=== PATIENT | male | born 1935 | race Caucasian/White ===

== ENCOUNTER → 2016-05-20 | Outpatient (CLI) | payer OTHER ==
--- NOTE | 2016-05-20 15:02 | DX ---
PA and Lateral Chest May 20, 2016 Clinical Indications: History of shortness of breath in a 80-year-old male; preprocedural evaluation . Comparison: July 26, 2015. Findings: No focal pulmonary consolidation is identified. There is hyperexpansion seen, with flatte sena of the hemidiaphragms noted. The heart is mildly enlarged. A bipolar cardiac pacer is in stabl e position. Mild elevation of the right hemidiaphragm is stable. Postoperative changes of anterior cervical fusion are noted. Pleural surfaces and bony thorax are negative for acute abnormality. Impressions 1. Hyperexpansion suggests possible airways disease. 2. Mild cardiac enlargement, without pulmonary edema.
== END ==
LOC: FIMAGING 11:41
PROVIDERS: ATTEND Internal Medicine
DX: R06.02 Shortness of breath (principal)

== ENCOUNTER → 2016-07-31 | Outpatient (CLI) | payer OTHER | LOC: CIMAGING 14:14 | PROVIDERS: ATTEND Family Medicine | DX: R93.6 Abnormal findings on diagnostic imaging of limbs (principal); M25.512 Pain in left shoulder | CPT/HCPCS: 73030-PO ==

== ENCOUNTER → 2016-08-19 | Outpatient (CLI) | payer OTHER | LOC: BRMIMAGING 09:32 | PROVIDERS: ATTEND Internal Medicine Hematology & Oncology | DX: Z13.820 Encounter for screening for osteoporosis (principal); M85.80 Other specified disorders of bone density and structure, unspecified site; Z85.46 Personal history of malignant neoplasm of prostate; Z87.81 Personal history of (healed) traumatic fracture; M54.5 Low back pain; E11.9 Type 2 diabetes mellitus without complications; N28.9 Disorder of kidney and ureter, unspecified ==

== ENCOUNTER → 2016-12-18 | Outpatient (CLI) | payer OTHER ==
[~2016-12-18] MED LIST: LIDO/EPI 1% **for epidural** 30 ML SDV ONE
== END ==
LOC: CIMAGING 11:38
PROVIDERS: ATTEND Internal Medicine
DX: I51.7 Cardiomegaly (principal)
CPT/HCPCS: 71020-PO

== ENCOUNTER 2017-03-03 14:32 | Inpatient (IN) | payer OTHER ==
[2017-03-03] MEDS ORDERED: methylPREDNISolone SOD SUCC 125 MG/2 ML VIAL IVP ONE (15:08)
[2017-03-03] MEDS ORDERED: IPRATROPIUM/ALBUTEROL 3 ML DEYVIAL IH ONE (15:08)
--- NOTE | 2017-03-03 15:08 | EDPHY ---
H & P Time Seen by Provider: 03/03/17 15:05 HPI/ROS: CHIEF COMPLAINT: Cough HISTORY OF PRESENT ILLNESS: Patient is a 81-year-old male with a history of COPD, diabetes and hypertension who presents emergency department with worsening cough. His symptoms started on Friday. His cough is nonproductive. He has mild shortness of breath. He has not measured temperature but he does have chills. He has had body aches because of the cough. He denies any leg pain or swelling. He has had no chest pain, nausea or vomiting. REVIEW OF SYSTEMS: My complete review of systems is negative except as mentioned in the HPI. Past Medical/Surgical History: Includes COPD, diabetes, hypertension, prostate cancer Past surgical history: Includes pacemaker placement, orthopedic surgery, back surgery Social history: The patient does not smoke Smoking Status: Former smoker Physical Exam: GENERAL: Well-appearing, in no acute distress, alert. HEENT: Eyes normal to inspection, normal pharynx, no signs of dehydration. NECK: No thyromegaly, no lymphadenopathy, supple. RESPIRATORY: diffuse wheeze with poor aeration. No rales or rhonchi. CVS: Regular rate and rhythm, no rubs, murmurs, or gallops. ABDOMEN: Soft, nontender, nondistended, no organomegaly. BACK: Normal to inspection, no CVA tenderness. SKIN: Normal color, no rash, warm, dry. No pallor. EXTREMITIES: No pedal edema, no calf tenderness, no Homans sign or cords, no joint swelling. NEURO/PSYCH: Alert and oriented x3, normal mood and affect, normal motor sensory exam. No obvious cranial nerve deficit. Constitutional: Initial Vital Signs Temperature (C) 37.4 C 03/03/17 14:41 Heart Rate 64 03/03/17 14:41 Respiratory Rate 20 03/03/17 14:41 Blood Pressure 119/68 03/03/17 14:41 O2 Sat (%) 96 03/03/17 14:41 O2 Delivery Mode Room Air Allergies/Adverse Reactions: No Known Allergies Allergy (Verified 03/03/17 14:39) Home Medications: Medication Instructions Recorded Albuterol [Proventil Inhaler HFA 2 puffs IH Q4 PRN 04/01/15 (*)] Amoxicillin/Clavulanate Pot 875 mg PO Q12 12/19/15 [Augmentin 875 MG TAB (*)] Aspirin [Aspirin 81mg (*)] 81 mg PO DAILY 04/01/15 Clobetasol 0.05% [Temovate Topical 1 alan TP DAILY PRN 04/01/15 Solution] Denosumab [Prolia] 60 mg SQ .[id number] 04/01/15 Docusate Sodium [Colace 100 MG (*)] 100 mg PO BID PRN 04/01/15 Ferrous Sulfate [Ferrous Sulf 325 325 mg PO DAILY 04/01/15 MG (*)] Furosemide [Lasix 20 MG (*)] 20 mg PO DAILY 04/01/15 Gabapentin [Neurontin 100 MG (*)] 100 mg PO TID 04/01/15 Herbals/Supplements -Info Only 1 ea PO DAILY 04/01/15 Ipratropium/Albuterol [Duoneb (*)] 3 ml IH QID PRN 04/01/15 Lidocaine 5% [Lidoderm 5% Patch 1 ea TD DAILY 04/01/15 (*)] Metoprolol Tartrate [Lopressor 25 25 mg PO BID 04/01/15 mg (*)] Multivitamins [Multivitamin (*)] 1 each PO DAILY 04/01/15 Polyethylene Glycol 3350 [Miralax 17 gm PO DAILY 04/01/15 17 gm (*)] Simvastatin [Zocor] 40 mg PO DAILY 04/01/15 Tamsulosin HCl [Flomax 0.4 MG (*)] 0.4 mg PO DAILY 04/01/15 Tiotropium Inhaler [Spiriva 18 mcg IH DAILY 04/01/15 Handihaler] glipiZIDE [Glipizide ER] 10 mg PO DAILY 04/01/15 Insulin Glargine [Lantus 100 30 units SC HS 5 Days ml 04/02/15 UNITS/ML (*)] levOFLOXACIN [levAQUIN] 500 mg PO DAILY #5 tab 04/02/15 predniSONE 40 mg PO DAILY 5 Days tablet 04/02/15 Medical Decision Making - Diagnostics Imaging Results: Imaging Impressions Chest X-Ray 03/03/17 14:55 Impression: COPD. Nothing acute identified. ED Course/Re-evaluation: In the emergency department I discussed possible etiologies with the patient. I answered all her questions. IV was placed. Laboratory studies, EKG and chest x-ray were obtained. Because the patient has significant wheezing and history of COPD patient was given a DuoNeb and Solu-Medrol 125 mg IV. The patient's stat had difficulty obtaining an IV. They were able to obtain blood. Because of this I ordered prednisone 60 mg in lieu of Solu-Medrol 125 mg. Patient's CBC was notable for normal white count. He is mildly anemic. His chemistry panel showed sodium 139, elevated potassium of 5.5, chloride 95, CO2 29, BUN 24, creatinine elevated 2.2. I compared this to his previous creatinine at 2.0. His glucose was 84. His lactic acid was elevated at 2.7. EKG: Ventricular paced rhythm at 93. On recheck the patient stated he felt better after the DuoNeb treatment. Chest x-ray: Please refer the dictated report. No acute infiltrate. The patient has findings consistent with COPD. I discussed the results with the patient. On recheck he still had scattered wheezing with mildly decreased breath sounds. No accessory muscle use. Patient ambulated in the emergency department off oxygen. He became hypoxic with oxygen saturation of 80%. He felt short of breath. With ambulation his heart rate also went from the 60s to greater than 100. I discussed the case with the hospitalist service. They will admit the patient. Patient is aware the plan for transfer. EMTALA was completed. Differential Diagnosis: My differential includes but is not limited to COPD exacerbation, pneumonia, bronchitis, empyema, pneumothorax, ACS, acute SC, electrolyte abnormality, sugar abnormality - Data Points Laboratory Results: Laboratory Results 03/03/17 15:45 03/03/17 15:45 03/03/17 03/03/17 03/03/17 15:45 15:45 15:45 WBC 6.37 10^3/uL 10^3/uL (3.80-9.50) RBC 3.48 10^6/uL L 10^6/uL (4.40-6.38) Hgb 11.4 g/dL L g/dL (13.7-17.5) Hct 34.1 % L % (40.0-51.0) MCV 98.0 fL fL (81.5-99.8) MCH 32.8 pg pg (27.9-34.1) MCHC 33.4 g/dL g/dL (32.4-36.7) RDW 12.8 % % (11.5-15.2) Plt Count 287 10^3/uL 10^3/uL (150-400) MPV 10.0 fL fL (8.7-11.7) Neut % (Auto) 63.1 % % (39.3-74.2) Lymph % (Auto) 19.8 % % (15.0-45.0) [place] % (Auto) 10.7 % % (4.5-13.0) Eos % (Auto) 5.0 % % (0.6-7.6) Baso % (Auto) 0.9 % % (0.3-1.7) Nucleat RBC Rel Count 0.0 % % (0.0-0.2) Absolute Neuts (auto) 4.02 10^3/uL 10^3/uL (1.70-6.50) Absolute Lymphs (auto) 1.26 10^3/uL 10^3/uL (1.00-3.00) Absolute Monos (auto) 0.68 10^3/uL 10^3/uL (0.30-0.80) Absolute Eos (auto) 0.32 10^3/uL 10^3/uL (0.03-0.40) Absolute Basos (auto) 0.06 10^3/uL 10^3/uL (0.02-0.10) Absolute Nucleated RBC 0.00 10^3/uL 10^3/uL (0-0.01) Immature Gran % 0.5 % % (0.0-1.1) Immature Gran # 0.03 10^3/uL 10^3/uL (0.00-0.10) RBC/WBC/PLT Morphology NORMAL (NORMAL) Platelet Estimate ADEQUATE (ADEQ) VBG Lactic Acid 2.7 mmol/L H mmol/L (0.7-2.1) Sodium 139 mEq/L mEq/L (134-144) Potassium 5.5 mEq/L H mEq/L (3.5-5.2) Chloride 95 mEq/L L mEq/L (97-110) Carbon Dioxide 29 mEq/l mEq/l (22-31) Anion Gap 15 mEq/L mEq/L (8-16) BUN 24 mg/dL H mg/dL (7-23) Creatinine 2.2 mg/dL H mg/dL (0.7-1.3) Estimated GFR 29 Glucose 84 mg/dL mg/dL (70-100) Calcium 9.4 mg/dL mg/dL (8.5-10.4) Troponin I 0.012 ng/mL ng/mL (0.000-0.034) NT-Pro-B Natriuret Pep 1290 pg/mL H pg/mL (0-450) Medications Given: Discontinued Medications Albuterol/Ipratropium (Duoneb) 3 ml IH EDNOW ONE Stop: 03/03/17 15:09 Last Admin: 03/03/17 16:06 Dose: 3 ml Methylprednisolone Sodium Succinate (Solu-Medrol) 125 mg IVP EDNOW ONE Stop: 03/03/17 15:09 Last Admin: 03/03/17 16:07 Dose: Not Given Prednisone (Prednisone) 60 mg PO EDNOW ONE Stop: 03/03/17 16:02 Last Admin: 03/03/17 16:06 Dose: 60 mg Departure - Departure Disposition: [facility] Inpatient Acute Clinical Impression: COPD (chronic obstructive pulmonary disease) Qualifiers: COPD type: unspecified COPD Qualified Code(s): J44.9 - Chronic obstructive pulmonary disease, unspecified Condition: Good Instructions: COPD (Chronic Obstructive Pulmonary Disease) (ED) Referrals: Samara Barfield MD [Primary Care Provider] - As per Instructions
[2017-03-03] MEDS ORDERED: predniSONE 20 MG TAB PO ONE (16:01)
[2017-03-03 16:06] LABS: % IMMATURE GRANULYOCYTES 0.5 % (0.0-1.1); ABSOLUTE IMMATURE GRANULOCYTES 0.03 10^3/uL (0.00-0.10); ATYPICAL LYMPHOCYTE FLAG 0 (0-99); FRAGMENT RBC FLAG 0 (0-99); HEMATOCRIT 34.1 % (40.0-51.0); HEMOGLOBIN 11.4 g/dL (13.7-17.5); LEFT SHIFT FLG 10 (0-99); LIPEMIA HEMOLYSIS FLAG 80 (0-99); MEAN CELL HEMOGLOBIN 32.8 pg (27.9-34.1); MEAN CELL HEMOGLOBIN CONCENTR. 33.4 g/dL (32.4-36.7); PLATELET COUNT 287 10^3/uL (150-400); RED BLOOD CELL COUNT 3.48 10^6/uL (4.40-6.38); RED CELL DISTRIBUTION WIDTH 12.8 % (11.5-15.2)
--- NOTE | 2017-03-03 16:12 | CPEKG ---
Heart Rate: 93 RR Interval: 645 P-R Interval: 184 QRSD Interval: 168 QT Interval: 416 QTC Interval: 518 P [place]: 0 QRS [place]: -67 T Wave [place]: 102 EKG Severity - ABNORMAL ECG - EKG Impression: VENTRICULAR-PACED COMPLEXES Electronically Signed By: Mary Kate Curry 03-Mar-2017 22:16:52
[2017-03-03 16:13] LABS: PLATELET CLUMPS FLAG 300 (0-99)
[2017-03-03 16:14] LABS: ADD DIFF? NO; ADD MORPH? YES; ADD SCAN? NO; CALCIUM 9.4 mg/dL (8.5-10.4); CREATININE 2.2 mg/dL (0.7-1.3); POTASSIUM 5.5 mEq/L (3.5-5.2)
[2017-03-03 16:28] LABS: TROPONIN I 0.012 ng/mL (0.000-0.034)
[2017-03-03 16:59] LABS: PLATELET ESTIMATE ADEQUATE (ADEQ)
[2017-03-03] MEDS ORDERED: NS 1,000 ML IV ONE (17:24)
[2017-03-03] MEDS ORDERED: ALBUTEROL 3 ML DEYVIAL IH ONE (20:26)
[2017-03-03] MEDS ORDERED: ALBUTEROL 3 ML DEYVIAL IH PRN (21:59)
[2017-03-03] MEDS ORDERED: ONDANSETRON DISINTEGRATING 4 MG TAB PO PRN (21:59)
[2017-03-03] MEDS ORDERED: ONDANSETRON 4 MG/2 ML VIAL IVP PRN (21:59)
[2017-03-03] MEDS ORDERED: D50W 25 GM/50 ML VIAL IVP PRN (22:33)
[2017-03-03 22:35] LABS: POTASSIUM 5.2 mEq/L (3.5-5.2)
[2017-03-03 22:49] LABS: TROPONIN I < 0.012 ng/mL (0.000-0.034)
[2017-03-03] MEDS: AZITHROMYCIN 250 MG TAB PO SCH (23:04)
[2017-03-03] MEDS: guaiFENesin 600 MG TAB.ER PO SCH (23:04)
[2017-03-03] MEDS: HEPARIN 5,000 UNIT/0.5 ML SYR SC SCH (23:04)
[2017-03-03] MEDS: INSULIN GLARGINE 100 UNITS/ML SYRINGE SC SCH (23:30)
--- NOTE | 2017-03-03 23:52 | GHP ---
[f rep st] HISTORY AND PHYSICAL DATE OF ADMISSION: 03/03/2017 CHIEF COMPLAINT: Cough and shortness of breath. HISTORY OF PRESENT ILLNESS: The patient is a 81-year-old male with history of COPD, diabetes, hypertension, chronic kidney disease, who presents to the emergency department with 2 days of worsening productive cough and shortness of breath. He states he developed a sore throat and congestion 2 days ago. He then developed a cough, which is intermittently productive. He states he gets chest pain only with coughing. Denies chest pressure at rest. He currently feels mildly short of breath. He denies fevers, but endorses chills. He also complains of myalgias. He has had no abdominal pain, nausea, vomiting, or diarrhea. No changes in his bowel or bladder habits. He notes nocturnal urinary frequency, which has been present since his prostate cancer diagnosis. In the emergency department, he was found to be hypoxemic to 88% on room air. There was no evidence of pneumonia on chest x-ray. He was given a nebulizer treatment along with 125 mg of IV Solu-Medrol. He is admitted to the hospital for further management. PAST MEDICAL HISTORY: 1. COPD. He does not require home oxygen. 2. Type 2 diabetes mellitus. 3. Chronic kidney disease with a baseline creatinine of 2. 4. Hypertension. 5. History of prostate cancer. 6. Presence of a pacemaker. 7. Coronary artery disease. 8. History of dilated cardiomyopathy. 9. Anemia of chronic disease. 10. Hyperlipidemia. MEDICATIONS: Please see [facility] for completed outpatient medication list. ALLERGIES: He has no known drug allergies. FAMILY HISTORY: Positive for diabetes. SOCIAL HISTORY: He is a former smoker. He denies alcohol. He lives independently and is able to form all of his ADLs. REVIEW OF SYSTEMS: A 10-point review of systems was performed and is negative as per HPI. PHYSICAL EXAMINATION: VITAL SIGNS: Temperature is 36.8. Blood pressure 115/ 61. Heart rate 73. Respiratory rate 16. He is 95% on 2 L oxygen by nasal cannula. GENERAL: The patient is awake, alert, oriented, in no acute distress HEENT: Head is atraumatic, normocephalic. Pupils equal, round, and reactive to light. Extraocular muscles intact. Oropharynx is clear. Mucous membranes are moist. NECK: Supple. There is no JVD. HEART: Regular rate and rhythm with a 2/6 systolic ejection murmur. LUNGS: Decreased air exchange with diffuse expiratory wheezes. ABDOMEN: Soft, nondistended, nontender with normoactive bowel sounds. EXTREMITIES: Without cyanosis, clubbing, or edema. Are warm and well perfused. NEUROLOGIC: Grossly nonfocal. LABORATORY DATA: CBC reveals a normal white count. Hemoglobin 11.4, which is stable. Initial lactate is 2.7; repeat is 2.5. Basic metabolic panel is remarkable for potassium of 5.5, repeat is 5.2. Creatinine is 2.2, which is near his baseline of 2. Blood sugar is 265. Initial troponin is negative. NT proBNP is 1290. Chest x-ray performed in the emergency department was personally reviewed and interpreted. Reveals flattening of the diaphragm with bronchial wall thickening consistent with COPD. No obvious infiltrate or consolidation is seen. EKG shows ventricular-paced complexes with a rate of 93. This EKG appears similar to previous EKGs. ASSESSMENT AND PLAN: The patient is a 81-year-old male with history of diabetes , hypertension, chronic kidney disease. He is admitted to the hospital with a chronic obstructive pulmonary disease exacerbation. 1. Acute hypoxemic respiratory failure secondary to acute exacerbation of chronic obstructive pulmonary disease. I suspect a viral illness. Respiratory pathogen panel is sent. He is currently requiring 2 L oxygen by nasal cannula. I will continue oral prednisone, scheduled DuoNebs, p.r.n. albuterol nebs as well as guaifenesin and azithromycin. Wean oxygen as able. If not improving with above treatment plan, consider further evaluation for PE though this seems less likely. 2. Type 2 diabetes mellitus. His blood sugar on arrival was 265. A recent A1c earlier this month was 7.7. I will continue his home dose of glargine and add preprandial sliding-scale bolus insulin for glycemic control. 3. Chronic kidney disease. His creatinine is 2.2, which is not far from his baseline of around 2. We will continue to monitor. 4. Hypertension. He is normotensive on arrival. We will continue his beta sun. Lisinopril is held due to below. 5. Hyperlipidemia. Continue statin. 6. Hyperkalemia. He may have been a bit hemoconcentrated on arrival. He received a liter of normal saline in the emergency department and his repeat potassium is 5.2. We will hold his lisinopril for now and monitor. 7. Elevated lactic acid. I do not think he has sepsis. This may be related to his decreased renal function and diabetes though he is not acidemic with a serum bicarb of 29. His lactate is trending down with IV fluids, which is reassuring. 8. Deep venous thrombosis prophylaxis: Subcu heparin. CODE STATUS: Patient is full code. DISPOSITION: Admitted to inpatient status. I anticipate he will require greater than 48 hours hospitalization for ongoing management of his acute hypoxemia in the setting of COPD exacerbation. /[id number]/MODL MTDD
[2017-03-04] MEDS: IPRATROPIUM/ALBUTEROL 3 ML DEYVIAL IH SCH ×4 (06:03→22:13)
[2017-03-04 06:15] LABS: ANION GAP 13 mEq/L (8-16); CALCIUM 8.7 mg/dL (8.5-10.4); CARBON DIOXIDE 25 mEq/l (22-31); CHLORIDE 98 mEq/L (97-110); CREATININE 2.4 mg/dL (0.7-1.3); GLOMERULAR FILTRATION RATE 26; GLUCOSE 334 mg/dL (70-100); POTASSIUM 6.1 mEq/L (3.5-5.2); SODIUM 136 mEq/L (134-144)
[2017-03-04] MEDS: HEPARIN 5,000 UNIT/0.5 ML SYR SC SCH ×3 (06:15→21:36)
[2017-03-04] MEDS: INSULIN LISPRO 100 UNIT/ML SC SCH (08:53)
[2017-03-04] MEDS: guaiFENesin 600 MG TAB.ER PO SCH ×2 (08:54→21:36)
[2017-03-04] MEDS: ATORVASTATIN CALCIUM 20 MG TAB PO SCH (08:54)
[2017-03-04] MEDS: AZITHROMYCIN 250 MG TAB PO SCH (08:55)
[2017-03-04] MEDS: ASPIRIN 81 MG CHEWABLE TAB PO SCH (08:55)
[2017-03-04] MEDS: FERROUS SULFATE 325 MG TAB PO SCH (08:55)
[2017-03-04] MEDS: GABAPENTIN 100 MG CAP PO SCH ×2 (08:55→21:36)
[2017-03-04] MEDS: METOPROLOL TARTRATE 25 MG TAB PO SCH (08:55)
[2017-03-04] MEDS ORDERED: LISINOPRIL 2.5 MG TAB PO SCH (09:00)
[2017-03-04] MEDS ORDERED: glipiZIDE 5 MG TAB PO SCH (09:00)
[2017-03-04] MEDS ORDERED: FUROSEMIDE 20 MG TAB PO SCH (09:00)
[2017-03-04] MEDS: predniSONE 20 MG TAB PO SCH (09:02)
[2017-03-04] MEDS ORDERED: CALCIUM GLUCONATE 2 GM in D5W 50 ML IV ONE (09:13)
[2017-03-04] MEDS ORDERED: NS 500 ML IV ONE (09:27)
[2017-03-04] MEDS ORDERED: INSULIN REGULAR HUMAN 100 UNIT/ML IVP ONE (09:35)
[2017-03-04] MEDS ORDERED: D5W NS 1,000 ML IV SCH (09:45)
--- NOTE | 2017-03-04 09:49 | CPEKG ---
Heart Rate: 96 RR Interval: 625 P-R Interval: 162 QRSD Interval: 162 QT Interval: 404 QTC Interval: 511 P [place]: 0 QRS [place]: -70 T Wave [place]: 101 EKG Severity - ABNORMAL ECG - EKG Impression: VENTRICULAR-PACED COMPLEXES Electronically Signed By: Alexandre Mon 04-Mar-2017 15:39:25
--- NOTE | 2017-03-04 09:51 | HOSPPROG ---
Hospitalist Progress Note Assessment/Plan: # acute hypoxic resp failure, d/t COPD and RSV - check pct - if negative will stop abx # RSV infection - treatment is supportive in immunocompetent adults - prednisone # COPD with acute exacerbation - cont prednisone # ppm - v-paced complexes on ECG # CAD - asa/statin/BB # chronic sCHF 45%, dilated cardiomyopathy - holding lisino, cont BB # PACO on CKD with hyperkalemia - 550cc UOP overnight - discussed with Dr Raines who will consult - Ca gluc; insulin, D5NS today - check Liam, UCr # DM2 - will cont glargine; he is getting regular IV insulin today - he had a reaction to lispro in the past # htn - hold lisino, cont metop Subjective: breathing still feels labored; mild dizziness Objective: Vital Signs Temp Pulse Resp BP Pulse Ox 36.9 C 74 15 145/60 H 93 03/04/17 07:13 03/04/17 07:13 03/04/17 07:13 03/04/17 07:13 03/04/17 07:13 Microbiology 03/03/17 21:37 Respiratory Panel (PCR) - Final Nasal, Sinus - Swab Respiratory Syncytial Virus Laboratory Results 03/04/17 03:52 03/03/17 03/04/17 03/05/17 05:59 05:59 05:59 Intake Total 1000 Output Total 550 Balance 450 chart reveiwed CXR personally reviewed - Physical Exam Constitutional: unkempt Cardiovascular: regular rate and rhythym, no murmur, rub, or gallop Respiratory: no rales or rhonchi, expiratory wheeze, No reduced air movement Gastrointestinal: normoactive bowel sounds, soft, non-tender abdomen, no palpable masses ICD10 Worksheet Patient Problems: Problems Problem Status Onset CHF - Congestive heart failure Active Acute renal failure syndrome Active Gout Active Diabetes mellitus type 2 Active Anemia of chronic disorder Active Chronic obstructive lung disease Acute Renal insufficiency syndrome Acute Hypoxemia Acute COPD (chronic obstructive pulmonary disease) Acute
[2017-03-04] MEDS: ACETAMINOPHEN 325 MG TAB PO PRN ×2 (10:14→18:39)
--- NOTE | 2017-03-04 10:34 | PDMN ---
Medical Necessity Medical necessity: Patient meets INPT criteria per physician note and MCG M-100 COPD (presents w/worsening productive cough and shortness of breath; sat 88% on RA in ED; + for RSV, lactic acid 2.7; K+ 6.1, Creat 2.2 (baseline 2.0) /BUN 24; hx of COPD, diabetes, HTN, CKD; anticipated LOS > 2 midnights for freq nebs, po steroids, new need for supplemental O2 at 2 LPM.)
--- NOTE | 2017-03-04 11:05 | GCON ---
[f rep st] CONSULTATION DATE OF CONSULTATION: 03/03/2017 REASON FOR ADMISSION: Cough with diagnosis of RSV. REASON FOR CONSULTATION: Acute on chronic renal failure. ASSESSMENT: 1. Chronic renal failure with a baseline creatinine of 1.8 to 2. 2. Underlying diabetes and hypertension. 3. History of hematuria and proteinuria on dipstick. 4. Respiratory syncytial virus. 5. Acute renal failure with a creatinine increased at 2.4. 6. Hyperkalemia with potassium of 6.1. 7. Hyperglycemia. RECOMMENDATION: 1. Hydrate. 2. Potassium restricted diet. 3. Treat potassium acutely. 4. Discontinue MARGRET inhibitor. 5. Followup potassium levels and provide additional treatment if needed. 6. Close monitoring and treatment of hyperglycemia, as this could be contributing to the patient's h yperkalemia. 7. Avoid IV contrast. 8. Avoid nonsteroidal agents. HISTORY: The patient is a very pleasant, 81-year-old male with stage 3 chronic kidney disease. He aceves s a baseline creatinine of 1.82. This is most recently documented on the of this month. This cor relates with an EGFR of 30-35 mL/min. He gets regular followup under the care of Dr. Crystal in the [place] office. The patient lives in [place]. Because of his CKD, he has been evaluated for par aproteinemia. No monoclonal proteins were detected. He did have increased kappa and lambda light bismark ns with a slightly elevated ratio. He has had prior renal imaging with an ultrasound performed back in 2014. His kidneys were symmetric without evidence of significant postvoid residual; he had about 135 cc on that exam. He had echogenic kidneys consistent with medical renal disease. PAST MEDICAL HISTORY: Diabetes, hypertension, coronary artery disease, iron deficiency, anemia, mayuri roesophageal reflux disease, cervical spine stenosis, hyperlipidemia, neuropathy, and a prior history of hyponatremia. He was originally seen by Dr. Crystal in consultation during a hospital stay on an2011. At that time, there were some concerns that he could have hemodynamic changes relate d to his heart and angiotensin receptor sun use that were contributing to his renal insufficiency . Over the last 5 years, his creatinine has been fairly stable. Creatinines back in 2011 were approxi mately 1.7. His creatinine was near normal back in 2008 when a level of 1.0 was documented. SURGICAL HISTORY: C-spine surgery, right total hip replacement, pacer placement, and shoulder surger y. MEDICATIONS ON ADMISSION: Include albuterol, gabapentin 100 mg twice daily, multivitamin daily, meto prolol tartrate 25 mg daily, furosemide 20 mg daily, ferrous sulfate 325 mg daily, aspirin 81 mg delma y, Lantus insulin 30 units at bedtime, lisinopril 2.5 mg daily, Combivent inhaler twice daily, Atorva statin 20 mg daily, glipizide 5 mg daily, PreserVision soft gel caps daily, calcium carbonate 500 mg daily. ALLERGIES: None. SOCIAL HISTORY: He is retired. He is . 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 He also worked at [employer]. He has had 6 children; evidently 1 of them has . He has a remote history of tobacco. Alfredo carter has a remote history of heavy alcohol use. He currently is a nonsmoker and nondrinker. REVIEW OF SYSTEMS: Remarkable for cough, malaise, and respiratory symptoms for the last 3 days. The patient states his appetite has been so-so. Per the hospitalist, the patient reported poor oral intak e for several days. PHYSICAL EXAMINATION: VITAL SIGNS: Temp 36.9, pulse 74, respirations 15, satting 93% on 2 L, blood p ressure 145/60. He weighs 80.1 kg. APPEARANCE: Mild distress. SKIN: Slightly diaphoretic. HEENT: Atra umatic, normocephalic. NECK: Unremarkable without thyromegaly or masses. CHEST: Left upper chest show s a pacer in place. HEART: Regular with no obvious extra heart sounds. LUNGS: Decreased bilaterally t hroughout. No spinous process or CVA tenderness. ABDOMEN: Benign. He has positive bowel sounds. Soft, nontender. No obvious organomegaly or masses. No hepatosplenomegaly noted. EXTREMITIES: Free of ahmet a. LABORATORY DATA: From this morning show a potassium of 6.1 with a creatinine of 2.4. He is mildly an emic with hematocrit of 34.1. ASSESSMENT: [id number] renal failure. I suspect this is prerenal in nature, and his urine elec trolytes may be difficult to interpret given his recent use of diuretic. We will check urine studies, including urinalysis, urine sodium, urine creatinine, and urine protein. He has chronic kidney disease. His baseline has been well established. He has not progressed signific antly in the last 5 years. He gets regular followup through Dr. Crystal office. We will monitor him while he is here in the hospital. His potassium needs to be treated acutely. This, I am sure, is related to his volume status, as well as recent use of lisinopril. His hyperglycemia may also be causing some potassium shift resulting in the potassium level that we see now. He will be given fluids. His potassium will be treated acutely. Will potassium restrict his diet. His potassium either stays elevated or rebounds, and I would give h im Kayexalate to help him eliminate his potassium more effectively. His blood pressure is okay. His medications have been reviewed. We will follow along with you. He pop uld avoid diuretics, nonsteroidal's, and IV contrast acutely. /[id number]/MODL
--- NOTE | 2017-03-04 14:18 | ASMTCMCOM ---
CM Note CM Note Notes: 03/04/2017 Case Management Note Met w/pt. Discussed PT recommendation for home PT at d/c. Pt agreeable. Sent referrals at pt request, waiting for acceptance. Pt lives with in son's home with daughter in law. Nevaeh can be reached at [phone]. Case Management d/c poc: home with agency help RN and PT when medically stable. Case Management to follow. Date Signed: 03/04/2017 02:18 PM Electronically Signed By:Joceline Dunaway RN
[2017-03-04 14:50] LABS: ANION GAP 10 mEq/L (8-16); CALCIUM 9.2 mg/dL (8.5-10.4); CARBON DIOXIDE 26 mEq/l (22-31); CHLORIDE 100 mEq/L (97-110); CREATININE 2.2 mg/dL (0.7-1.3); GLOMERULAR FILTRATION RATE 29; GLUCOSE 284 mg/dL (70-100); POTASSIUM 5.6 mEq/L (3.5-5.2); SODIUM 136 mEq/L (134-144)
[2017-03-04] MEDS ORDERED: NS 1,000 ML IV SCH (17:30)
[2017-03-04 18:59] LABS: GLUCOSE 372 mg/dL (70-100)
[2017-03-04 22:04] LABS: GLUCOSE 368 mg/dL (70-100)
[2017-03-04] MEDS: INSULIN GLARGINE 100 UNITS/ML SYRINGE SC SCH (22:22)
[2017-03-05 04:02] LABS: % IMMATURE GRANULYOCYTES 0.2 % (0.0-1.1); ABSOLUTE IMMATURE GRANULOCYTES 0.02 10^3/uL (0.00-0.10); ADD DIFF? NO; ADD MORPH? NO; ADD SCAN? NO; ATYPICAL LYMPHOCYTE FLAG 10 (0-99); FRAGMENT RBC FLAG 0 (0-99); HEMATOCRIT 29.4 % (40.0-51.0); HEMOGLOBIN 9.6 g/dL (13.7-17.5); LEFT SHIFT FLG 0 (0-99); LIPEMIA HEMOLYSIS FLAG 80 (0-99); MEAN CELL HEMOGLOBIN 32.5 pg (27.9-34.1); MEAN CELL HEMOGLOBIN CONCENTR. 32.7 g/dL (32.4-36.7); MEAN CELL VOLUME 99.7 fL (81.5-99.8); MEAN PLATELET VOLUME 9.6 fL (8.7-11.7); PLATELET CLUMPS FLAG 0 (0-99); PLATELET COUNT 254 10^3/uL (150-400); RED BLOOD CELL COUNT 2.95 10^6/uL (4.40-6.38)
[2017-03-05 04:41] LABS: ANION GAP 12 mEq/L (8-16); CALCIUM 8.6 mg/dL (8.5-10.4); CARBON DIOXIDE 23 mEq/l (22-31); CHLORIDE 102 mEq/L (97-110); CREATININE 2.2 mg/dL (0.7-1.3); GLOMERULAR FILTRATION RATE 29; GLUCOSE 264 mg/dL (70-100); POTASSIUM 5.3 mEq/L (3.5-5.2); SODIUM 137 mEq/L (134-144)
[2017-03-05] MEDS: IPRATROPIUM/ALBUTEROL 3 ML DEYVIAL IH SCH ×4 (06:09→20:41)
[2017-03-05] MEDS: HEPARIN 5,000 UNIT/0.5 ML SYR SC SCH ×3 (06:28→21:26)
[2017-03-05] MEDS: ASPIRIN 81 MG CHEWABLE TAB PO SCH (08:37)
[2017-03-05] MEDS: GABAPENTIN 100 MG CAP PO SCH ×2 (08:37→20:21)
[2017-03-05] MEDS: predniSONE 20 MG TAB PO SCH (08:37)
[2017-03-05] MEDS: guaiFENesin 600 MG TAB.ER PO SCH ×2 (08:37→20:20)
[2017-03-05] MEDS: METOPROLOL TARTRATE 25 MG TAB PO SCH (08:37)
[2017-03-05] MEDS: FERROUS SULFATE 325 MG TAB PO SCH (08:37)
[2017-03-05] MEDS: AZITHROMYCIN 250 MG TAB PO SCH (08:37)
[2017-03-05] MEDS: ATORVASTATIN CALCIUM 20 MG TAB PO SCH (08:37)
--- NOTE | 2017-03-05 08:45 | SOAPPROG ---
SOAP Progress Note Assessment/Plan: Assessment:Plan: ARF on CRF-peked at 2.4 -down to 2.2 -volume replete -dc IVF -keep off MARGRET-i -avoid NSAIDs, contrast CKD-baseline 1.8 to 2 -sees Dr. Crystal -fairly stable since 2011 RSV-CPM 03/05/17 08:43 Subjective: breathing better hungry Objective: Vital Signs Temp Pulse Resp BP Pulse Ox 36.8 C 85 20 120/59 L 95 03/05/17 07:21 03/05/17 07:21 03/05/17 07:21 03/05/17 07:21 03/05/17 07:21 Microbiology 03/03/17 21:37 Respiratory Panel (PCR) - Final Nasal, Sinus - Swab Respiratory Syncytial Virus Laboratory Results 03/05/17 03:22 03/05/17 03:22 03/04/17 03/05/17 03/06/17 05:59 05:59 05:59 Intake Total 1000 2180 Output Total 550 1450 Balance 450 730 Physical Exam - Physical Exam General Appearance: WD/WN, alert, mild distress EENT: normal ENT inspection Neck: normal inspection Respiratory: decreased breath sounds (1/4 bilaterally) Cardiac/Chest: regular rate, rhythm Abdomen: normal bowel sounds Back: Normal inspection Skin: normal color, warm/dry Extremities: swelling (trace) Neuro/Psych: no motor/sensory deficits, alert, normal mood/affect ICD10 Worksheet Patient Problems: Problems Problem Status Onset COPD (chronic obstructive pulmonary disease) Acute Acute renal failure syndrome Active Anemia of chronic disorder Active CHF - Congestive heart failure Active Diabetes mellitus type 2 Active Gout Active Chronic obstructive lung disease Acute Hypoxemia Acute Renal insufficiency syndrome Acute
[2017-03-05] MEDS: INSULIN LISPRO 100 UNIT/ML SC SCH ×2 (12:15→17:52)
--- NOTE | 2017-03-05 14:17 | ASMTCMCOM ---
CM Note CM Note Notes: Chart reviewed. Plan home with [facility]. RN and PT. Referral to [facility] who can accept patient. Plan dc to home with [facility] when medically stable. Date Signed: 03/05/2017 02:16 PM Electronically Signed By:Kindra Marsh RN
--- NOTE | 2017-03-05 14:59 | HOSPPROG ---
Hospitalist Progress Note Assessment/Plan: * COPD exacerbation - suspect due to viral bronchitis (RSV) -prednisone, nebs -consider stop azithro * Acute respiratory failure - O2 * Acute on Chronic renal failure - baseline 1.9 -suspect hypovolemia -hold ACEI and monitor * Hyperkalemia - improved * Chronic systolic CHF - EF 45% -will need ACEI restarted when stable * SSS s/p PCM * DM II -continue Lantus -reduce prednisone 40mg, may help glucose control Subjective: Feeling better Objective: Vital Signs Temp Pulse Resp BP Pulse Ox 36.6 C 68 22 H 115/54 L 95 03/05/17 11:24 03/05/17 11:24 03/05/17 11:24 03/05/17 11:24 03/05/17 11:24 Laboratory Results 03/05/17 03:22 03/05/17 03:22 03/04/17 03/05/17 03/06/17 05:59 05:59 05:59 Intake Total 1000 2180 Output Total 550 1450 Balance 450 730 CXR - COPD, no infiltrate EKG viewed, my personal interpretation is - paced rhythm - Physical Exam Constitutional: no apparent distress, appears nourished, not in pain Cardiovascular: regular rate and rhythym, no murmur, rub, or gallop Respiratory: no respiratory distress, no rales or rhonchi, clear to auscultation Gastrointestinal: normoactive bowel sounds, soft, non-tender abdomen, no palpable masses Skin: no rashes or abrasions, no fluctuance, no induration Neurologic: AAOx3, sensation intact bilaterally Psychiatric: interacting appropriately, not anxious, not encephalopathic, thought process linear ICD10 Worksheet Patient Problems: Problems Problem Status Onset COPD (chronic obstructive pulmonary disease) Acute Acute renal failure syndrome Active Anemia of chronic disorder Active CHF - Congestive heart failure Active Diabetes mellitus type 2 Active Gout Active Chronic obstructive lung disease Acute Hypoxemia Acute Renal insufficiency syndrome Acute
[2017-03-05 15:26] LABS: COLOR YELLOW; LEUKOCYTE ESTERASE,URINE NEGATIVE (NEGATIVE); NITRITE,URINE NEGATIVE (NEGATIVE)
[2017-03-05 15:43] LABS: MUCUS TRACE /lpf (NONE-1+)
[2017-03-05 15:44] LABS: WBC,URINE NONE SEEN /hpf (0-3)
[2017-03-05 16:28] LABS: RANDOM URINE PROTEIN 18 mg/dL (0-11)
[2017-03-05 19:19] LABS: GLUCOSE 393 mg/dL (70-100)
[2017-03-05] MEDS ORDERED: INSULIN LISPRO 100 UNIT/ML SC ONE (20:02)
[2017-03-05] MEDS: INSULIN GLARGINE 100 UNITS/ML SYRINGE SC SCH (20:25)
[2017-03-06 04:01] LABS: ANION GAP 10 mEq/L (8-16); CALCIUM 8.8 mg/dL (8.5-10.4); CARBON DIOXIDE 24 mEq/l (22-31); CHLORIDE 103 mEq/L (97-110); GLOMERULAR FILTRATION RATE 32; GLUCOSE 207 mg/dL (70-100); POTASSIUM 5.2 mEq/L (3.5-5.2); SODIUM 137 mEq/L (134-144)
[2017-03-06] MEDS: IPRATROPIUM/ALBUTEROL 3 ML DEYVIAL IH SCH ×4 (05:53→21:20)
[2017-03-06] MEDS: HEPARIN 5,000 UNIT/0.5 ML SYR SC SCH ×3 (05:59→21:01)
[2017-03-06] MEDS: INSULIN LISPRO 100 UNIT/ML SC SCH ×3 (08:19→16:52)
[2017-03-06] MEDS: ATORVASTATIN CALCIUM 20 MG TAB PO SCH (08:19)
[2017-03-06] MEDS: FERROUS SULFATE 325 MG TAB PO SCH (08:20)
[2017-03-06] MEDS: METOPROLOL TARTRATE 25 MG TAB PO SCH (08:20)
[2017-03-06] MEDS: ASPIRIN 81 MG CHEWABLE TAB PO SCH (08:20)
[2017-03-06] MEDS: GABAPENTIN 100 MG CAP PO SCH ×2 (08:23→21:02)
[2017-03-06] MEDS: predniSONE 20 MG TAB PO SCH (08:23)
[2017-03-06] MEDS: AZITHROMYCIN 250 MG TAB PO SCH (08:23)
[2017-03-06] MEDS: guaiFENesin 600 MG TAB.ER PO SCH ×2 (08:23→21:02)
--- NOTE | 2017-03-06 12:17 | SOAPPROG ---
SOAP Progress Note Assessment/Plan: Assessment: 1. PACO on CKD. Creat back to baseline of 2. Likely hemodynamic from low po intake, ACEI. 2. Hyperkalemia. Resolved. Holding ACEI. 3. Dyspnea. RSV. CXR and exam suggest mild pulm edema. Will give dose of lasix x 1 IV this am. 4. HTN. BP running low w/o ACEI. Continue to hold. Plan: 03/06/17 12:15 03/06/17 12:16 03/06/17 12:17 Subjective: Had to have O2 increased from 1 to 3 L this am. He denies any increase in dyspnea, cough and denies any complaints. CXR done. Objective: Vital Signs Temp Pulse Resp BP Pulse Ox 36.3 C 80 20 116/80 93 03/06/17 12:00 03/06/17 12:00 03/06/17 12:00 03/06/17 12:00 03/06/17 12:00 Laboratory Results 03/05/17 03:22 03/06/17 03:22 03/05/17 03/06/17 03/07/17 05:59 05:59 05:59 Intake Total 2180 1778 380 Output Total 1450 1875 490 Balance 730 -97 -110 In chair, mildly dyspneic, wearing NC O2 RRR, no m/g/r; JVD ~7 cm on left while sitting Diffuse crackles, most prominent in bases, coarse Abdom soft, nontender 1+ LE edema CXR: I reviewed image. Shows increased interstitial markings. ICD10 Worksheet Patient Problems: Problems Problem Status Onset CHF - Congestive heart failure Active Acute renal failure syndrome Active Gout Active Diabetes mellitus type 2 Active Anemia of chronic disorder Active Chronic obstructive lung disease Acute Renal insufficiency syndrome Acute Hypoxemia Acute COPD (chronic obstructive pulmonary disease) Acute
[2017-03-06] MEDS ORDERED: FUROSEMIDE 20 MG/2 ML VIAL IVP ONE (12:18)
--- NOTE | 2017-03-06 14:23 | ASMTCMCOM ---
CM Note CM Note Notes: Reviewed chart regarding discharge plan, pt's progress. Per MD notes, pt w/ increased oxygen needs today (from 1L to 3L). Plan remains for pt to discharge home w/ [facility] (RN/PT/OT) when medically stable. Update provided to Sol w/ [facility]. CM will cont to follow. Current Discharge Plan: Home w/ [facility] (RN/PT/OT) Date Signed: 03/06/2017 02:23 PM Electronically Signed By:Josy Sheehan RN
--- NOTE | 2017-03-06 14:45 | HOSPPROG ---
Hospitalist Progress Note Assessment/Plan: * COPD exacerbation - suspect due to viral bronchitis (RSV) -prednisone, nebs -azithro x 5 days * Acute respiratory failure - O2 * Acute on Chronic renal failure - baseline 2.o -hypovolemia now resolved -continue to hold ACEI * Hyperkalemia - improved * Chronic systolic CHF - EF 45% -IV lasix today -will need ACEI restarted when stable * SSS s/p PCM * DM II -continue Lantus Subjective: Still SOB, desats down to 80% on 3L with ambulation Objective: Vital Signs Temp Pulse Resp BP Pulse Ox 36.3 C 80 20 116/80 93 03/06/17 12:00 03/06/17 12:00 03/06/17 12:00 03/06/17 12:00 03/06/17 12:00 Laboratory Results 03/05/17 03:22 03/06/17 03:22 03/05/17 03/06/17 03/07/17 05:59 05:59 05:59 Intake Total 2180 1778 380 Output Total 1450 1875 490 Balance 730 -97 -110 - Physical Exam Constitutional: no apparent distress, appears nourished, not in pain Cardiovascular: regular rate and rhythym, no murmur, rub, or gallop Respiratory: no respiratory distress, no rales or rhonchi, clear to auscultation Gastrointestinal: normoactive bowel sounds, soft, non-tender abdomen, no palpable masses Skin: no rashes or abrasions, no fluctuance, no induration Neurologic: AAOx3, sensation intact bilaterally Psychiatric: interacting appropriately, not anxious, not encephalopathic, thought process linear ICD10 Worksheet Patient Problems: Problems Problem Status Onset COPD (chronic obstructive pulmonary disease) Acute Acute renal failure syndrome Active Anemia of chronic disorder Active CHF - Congestive heart failure Active Diabetes mellitus type 2 Active Gout Active Chronic obstructive lung disease Acute Hypoxemia Acute Renal insufficiency syndrome Acute
[2017-03-06] MEDS: INSULIN GLARGINE 100 UNITS/ML SYRINGE SC SCH (21:01)
[2017-03-07 04:42] LABS: % IMMATURE GRANULYOCYTES 0.6 % (0.0-1.1); ABSOLUTE IMMATURE GRANULOCYTES 0.04 10^3/uL (0.00-0.10); ADD DIFF? NO; ADD MORPH? NO; ADD SCAN? NO; ATYPICAL LYMPHOCYTE FLAG 50 (0-99); FRAGMENT RBC FLAG 0 (0-99); HEMATOCRIT 29.5 % (40.0-51.0); LEFT SHIFT FLG 0 (0-99); LIPEMIA HEMOLYSIS FLAG 90 (0-99); MEAN CELL HEMOGLOBIN CONCENTR. 33.9 g/dL (32.4-36.7); MEAN CELL VOLUME 97.4 fL (81.5-99.8); MEAN PLATELET VOLUME 9.6 fL (8.7-11.7); PLATELET CLUMPS FLAG 0 (0-99); PLATELET COUNT 253 10^3/uL (150-400); RED BLOOD CELL COUNT 3.03 10^6/uL (4.40-6.38); RED CELL DISTRIBUTION WIDTH 12.9 % (11.5-15.2)
[2017-03-07 04:55] LABS: ALBUMIN 3.1 g/dL (3.5-5.0); CALCIUM 8.8 mg/dL (8.5-10.4); CARBON DIOXIDE 24 mEq/l (22-31); CHLORIDE 101 mEq/L (97-110); CREATININE 2.2 mg/dL (0.7-1.3); GLOMERULAR FILTRATION RATE 29; GLUCOSE 250 mg/dL (70-100); SODIUM 136 mEq/L (134-144)
[2017-03-07] MEDS: IPRATROPIUM/ALBUTEROL 3 ML DEYVIAL IH SCH ×2 (05:37→11:08)
[2017-03-07 05:44] LABS: ANION GAP 11 mEq/L (8-16); POTASSIUM 4.9 mEq/L (3.5-5.2)
[2017-03-07] MEDS: HEPARIN 5,000 UNIT/0.5 ML SYR SC SCH (06:02)
[2017-03-07 07:06] VITALS: BP 132/54; TEMP 97.7
[2017-03-07] MEDS: INSULIN LISPRO 100 UNIT/ML SC SCH (08:52)
[2017-03-07] MEDS: guaiFENesin 600 MG TAB.ER PO SCH (08:52)
[2017-03-07] MEDS: GABAPENTIN 100 MG CAP PO SCH (08:53)
[2017-03-07] MEDS: predniSONE 20 MG TAB PO SCH (08:53)
[2017-03-07] MEDS: ATORVASTATIN CALCIUM 20 MG TAB PO SCH (08:53)
[2017-03-07] MEDS: FERROUS SULFATE 325 MG TAB PO SCH (08:53)
[2017-03-07] MEDS: METOPROLOL TARTRATE 25 MG TAB PO SCH (08:53)
[2017-03-07] MEDS: AZITHROMYCIN 250 MG TAB PO SCH (08:53)
[2017-03-07] MEDS: ASPIRIN 81 MG CHEWABLE TAB PO SCH (08:53)
--- NOTE | 2017-03-07 10:06 | PDIAF ---
- Diagnosis Diagnosis: COPD exacerbation due to RSV Code Status: Full Code - Medication Management Discharge Medications: Medications to Continue on Transfer Albuterol [Proventil Inhaler HFA (*)] 2 puffs IH Q4 PRN 04/01/15 [Last Taken Unknown] Aspirin [Aspirin 81mg (*)] 81 mg PO DAILY 04/01/15 [Last Taken 03/03/17] Ferrous Sulfate [Ferrous Sulf 325 MG (*)] 325 mg PO DAILY 04/01/15 [Last Taken 03/03/17] Gabapentin [Neurontin 100 MG (*)] 100 mg PO BID 04/01/15 [Last Taken 03/03/17] Metoprolol Tartrate [Lopressor 25 mg (*)] 25 mg PO DAILY 04/01/15 [Last Taken ] Multivitamins [Multivitamin (*)] 1 each PO DAILY 04/01/15 [Last Taken 03/03/17] Insulin Glargine [Lantus 100 UNITS/ML (*)] 30 units SC HS 5 Days ml 04/02/15 [ Last Taken 03/02/17] Atorvastatin Calcium [Lipitor 20 mg (*)] 20 mg PO DAILY 03/03/17 [Last Taken ] C/E/Zn/Cu/OM3/DHA/EPA/LUT/ZEAX [Preservision Areds 2 Softgel] 1 each PO DAILY [Last Taken 03/03/17] Calcium Carb W/Vit D [Calcium Carb W/Vit D 500/200 (*)] 500 mg PO DAILY [Last Taken 03/03/17] glipiZIDE [Glucotrol 5 mg] 5 mg PO DAILY 03/03/17 [Last Taken 03/03/17] Fluticasone/Salmeter 250/50Mcg [Advair 250/50 (*)] 1 puffs IH BID #1 disk [Last Taken Unknown] Furosemide [Lasix 20 MG (*)] 20 mg PO DAILY #30 tab 03/07/17 [Last Taken Unknown ] Tiotropium Inhaler [Spiriva Inhaler] 18 mcg IH DAILY #1 mdi 03/07/17 [Last Taken Unknown] Discharge Medications: Refer to the Discharge Home Medication list for PRN reason. - Orders Services needed: Home Care, Registered Nurse, Physical Therapy, Occupational Therapy Home Care Face to Face: I certify that this patient was under my care and that I had the required [id number] encounter meeting the encounter requirements on the discharge day. My findings support the fact that the patient is homebound as defined in Home Care Face to Face Continued: [facility] Chapter 7 Medicare Benefits Manual 30.1.1 , The condition of the patient is such that there exists a normal inability to leave home and consequently, leaving home would require a considerable and taxing effort. Diet Recommendation: no restrictions on diet Additional: Stop lisinopril due to ARF and hyperkalemia - Labs/Radiology BMP Date: 03/10/17 - Follow Up Care Current Providers and Referrals: Samara Barfield MD [Primary Care Provider] - As per Instructions
[2017-03-07 11:13] VITALS: PULSE 58; RESP 20; O2SAT 94
--- NOTE | 2017-03-07 12:31 | ASDISCHSUM ---
Discharge Information Plan Status:Home with Home Health Medically Cleared to Leave:03/06/2017 Discharge Date:03/07/2017 11:50 AM CM D/C Disposition:Home Health Service ADT D/C Disposition:Home Health Service Projected Discharge Date:03/06/2017 11:00 AM Transportation at D/C:Family Discharge Delay Reason: Follow-Up Date:03/06/2017 11:00 AM Discharge Slot: Final Diagnosis: Placement Information Referral Type:*Home Health Care Services Referral ID:[id number] Provider Name:[facility] Address 1:[address] [place] [address] Address 2: City:[place] Selection Factors: State:[place] Patient Contact Information Contact Name:KENDALL Relationship: Address:[address] Work Phone: [facility]:[place] Alternate Phone: [facility]/Zip Code:[place] [address] Email: Financial Information Financial Class:Medicare Advantage Plans Primary Plan Desc:[facility] [employer] [facility] Primary Plan Number:[id number] Secondary Plan Desc: Secondary Plan Number: Assessment Information [facility] CM Progress Note CM Note CM Note Notes: 03/04/2017 Case Management Note Met w/pt. Discussed PT recommendation for home PT at d/c. Pt agreeable. Sent referrals at pt request, waiting for acceptance. Pt lives with in son's home with daughter in law. Nevaeh can be reached at [phone]. Case Management d/c poc: home with agency help RN and PT when medically stable. Case Management to follow. Date Signed: 03/04/2017 02:18 PM Electronically Signed By:Joceline Dunaway RN LACE LACBaldev Length of stay for Answers: 4-6 days current admission Acuity / Level of Care Answers: Was the patient admitted to hospital via the emergency department? Yes: Comorbidities - select Answers: Peripheral vascular all that apply disease Diabetes with end organ damage Chronic pulmonary disease Moderate or severe liver disease or renal disease Emergency dept visits in Answers: 0 last 6 months Score: 16 Date Signed: 03/04/2017 03:38 PM Electronically Signed By:Joceline Dunaway RN [facility] CM Progress Note CM Note CM Note Notes: Chart reviewed. Plan home with [facility]. RN and PT. Referral to [facility] who can accept patient. Plan dc to home with [facility] when medically stable. Date Signed: 03/05/2017 02:16 PM Electronically Signed By:Kindra Marsh RN [facility] CM Progress Note CM Note CM Note Notes: Reviewed chart regarding discharge plan, pt's progress. Per MD notes, pt w/ increased oxygen needs today (from 1L to 3L). Plan remains for pt to discharge home / [facility] (RN/PT/OT) when medically stable. Update provided to [facility]/ [facility]. CM will cont to follow. Current Discharge Plan: Home w/ [facility] (RN/PT/OT) Date Signed: 03/06/2017 02:23 PM Electronically Signed By:Josy Sheehan RN Case Management Discharge Plan Note Case Management Discharge Discharge Order Complete? Answers: Yes Patient to Obtain Answers: via Family Medications Transportation Arranged Answers: Family/Friends Faxed Final Orders Answers: Yes Agency/Facility Transfer Answers: Yes Report Printed & Faxed to Receiving Agency Family Notified Answers: Yes Notes: per patient Discharge Comments Notes: Daughter to transport pt home. [facility] notified of d/c and orders faxed. RN to call report. IM signed. Date Signed: 03/07/2017 10:29 AM Electronically Signed By:Joceline Dunaway RN Intervention Information Intervention Type:*Incorrect Registration Date of Service:03/03/2017 10:36 AM Patient Type:Inpatient Staff Member:HUSSEIN Alvarez Susan Hours: Discipline: Severity: Comment: Intervention Type:*IM-Signed Date of Service:03/07/2017 10:28 AM Patient Type:Inpatient Staff Member:HUSSEIN Dunaway Hillary Hours: Discipline: Severity: Comment:
--- NOTE | 2017-03-07 16:44 | GDS ---
[f rep st] DISCHARGE SUMMARY DISCHARGE DIAGNOSIS: 1. Chronic obstructive pulmonary disease exacerbation due to viral bronchitis with RSV. 2. Acute respiratory failure. 3. Aoxgg-lo-sapaalb renal failure. 4. Hyperkalemia. 5. Zxxsx-jy-fmueqki systolic congestive heart failure. Ejection fraction 45%. 6. Sick sinus syndrome status post pacemaker. 7. Diabetes type 2. HISTORY: The patient is a 81-year-old male who presented with shortness of breath. He was found hav e a COPD exacerbation. Respiratory PCR revealed RSV. He was treated with prednisone and nebulizers. He got a short course of antibiotics, although I do think that it was more of a viral etiology. He was quite short of breath requiring quite a bit of oxygen, but we have been able to successfully wea n back to room air. He has completed antibiotics and prednisone while in the hospital and will just need ongoing respiratory therapy upon discharge. He is much improved at this time. The patient was also noted to have ojahp-gf-ysilboi renal failure. He has a baseline creatinine of 2 . This was accompanied by hyperkalemia. This is suspected to be due to hypovolemia due to his viral illness with ongoing administration of his MARGRET inhibitor. Nephrology was consulted. We held his AC E inhibitor and his creatinine did improve back to baseline. He did develop a little pulmonary edema after this and did require reinstitution of Lasix. We should continue to follow his renal function closely as an outpatient. DISCHARGE MEDICATIONS: Please see computerized record for full detailed list. New medications: Advair 250/50 one puff b.i.d., Spiriva 1 puff daily. Continuation of Lasix 20 mg p.o. daily, as he was prior to admission. Discontinued medications: Lisinopril 2.5 mg p.o. daily. ADDITIONAL DISCHARGE INSTRUCTIONS: 1. Home health PT, OT, VNS arranged at the time of hospital discharge. 2. Repeat basic metabolic panel, March 10, 2017, with results to primary care. Greater than 30 minutes' time was spent arranging this discharge. Patient was seen and examined by katie carter on the day of discharge. /[id number]/MODL
== END 2017-03-07 11:50 | disposition home health service (06) | DRG 190 ==
LOC: CED 14:32 → CEDHOLD 17:24 → OBSVTOIN 18:42 → F2W 21:20
PROVIDERS: ADMIT Hospitalist; ATTEND Hospitalist
DX: J44.1 Chronic obstructive pulmonary disease with (acute) exacerbation (principal); I13.0 Hypertensive heart and chronic kidney disease with heart failure and stage 1 through stage 4 chronic kidney disease, or unspecified chronic kidney disease; I50.23 Acute on chronic systolic (congestive) heart failure; J96.00 Acute respiratory failure, unspecified whether with hypoxia or hypercapnia; N17.9 Acute kidney failure, unspecified; J20.5 Acute bronchitis due to respiratory syncytial virus; N18.3 Chronic kidney disease, stage 3 (moderate); E87.5 Hyperkalemia; E11.9 Type 2 diabetes mellitus without complications; Z95.0 Presence of cardiac pacemaker; Z85.46 Personal history of malignant neoplasm of prostate; Z87.891 Personal history of nicotine dependence; E78.5 Hyperlipidemia, unspecified
CPT/HCPCS: 71020-PO; 80048-PO; 82947-QW; 83605-PO; 83880-PO; 84484-PO; 85025-PO; 97116-GP; 97161-GP; 97165-GO; 97530-GO; 97535-GO; G8978-GP-CJ; G8979-GP-CI; G8987-GO-CJ; G8988-GO-CI; G8989-GO-CI; J0610; J1815; J1940

== ENCOUNTER → 2017-03-13 | Outpatient (CLI) | payer OTHER | LOC: CIMAGING 15:26 | PROVIDERS: ATTEND Family Medicine | DX: M51.36 Other intervertebral disc degeneration, lumbar region (principal); M51.37 Other intervertebral disc degeneration, lumbosacral region; M41.86 Other forms of scoliosis, lumbar region; M53.3 Sacrococcygeal disorders, not elsewhere classified; C61 Malignant neoplasm of prostate | CPT/HCPCS: 72100-PO ==

== ENCOUNTER 2017-03-18 12:18 | Inpatient (IN) | payer OTHER ==
[2017-03-18] MEDS ORDERED: NS 500 ML IV ONE ×2 (12:33→13:48)
[2017-03-18] MEDS ORDERED: IPRATROPIUM/ALBUTEROL 3 ML DEYVIAL IH ONE (12:33)
--- NOTE | 2017-03-18 12:37 | EDPHY ---
H & P Stated Complaint: cough and fatigue weak since last Friday. HPI/ROS: CHIEF COMPLAINT: Shortness of breath, cough HISTORY OF PRESENT ILLNESS: Patient is a 81-year-old man with a history of COPD and recent admission due to viral bronchitis/RSV. He also has a history of renal insufficiency and CHF with an ejection fraction of 45% as well as sick sinus syndrome with a pacemaker and diabetes type 2. The patient states that over the last week he has began to have cough again and that yesterday he got much worse and his home health nurse listened to him and told him that he was very congested and needed to sees . He has not had a fever. No chest pain. No nausea vomiting. No extremity edema. His symptoms are worse with exertion but no orthopnea. REVIEW OF SYSTEMS: Constitutional: denies: chills, fever, recent illness, recent injury EENTM: denies: blurred vision, double vision, nose congestion Respiratory: See HPI Cardiac: denies: chest pain, irregular heart rate, lightheadedness, palpitations Gastrointestinal/Abdominal: denies: abdominal pain, diarrhea, nausea, vomiting, blood streaked stools Genitourinary: denies: dysuria, frequency, hematuria, pain Musculoskeletal: denies: joint pain, muscle pain Skin: denies: lesions, rash, jaundice, bruising Neurological: denies: headache, numbness, paresthesia, tingling, dizziness, weakness Hematologic/Lymphatic: denies: blood clots, easy bleeding, easy bruising Immunologic/allergic: denies: HIV/AIDS, transplant EXAM: GENERAL: Well-appearing, well-nourished and in no acute distress. HEAD: Atraumatic, normocephalic. EYES: Pupils equal round and reactive to light, extraocular movements intact, sclera anicteric, conjunctiva are normal. ENT: TMs normal, nares patent, oropharynx clear without exudates. Moist mucous membranes. NECK: Normal range of motion, supple without lymphadenopathy or JVD. LUNGS: Bilateral rhonchi HEART: Regular rate and rhythm without murmurs, rubs or gallops. ABDOMEN: Soft, nontender, normoactive bowel sounds. No guarding, no rebound. No masses appreciated. BACK: No CVA tenderness, no spinal tenderness, step-offs or deformities EXTREMITIES: Normal range of motion, no pitting or edema. No clubbing or cyanosis. NEUROLOGICAL: Cranial nerves II through XII grossly intact. Normal speech, normal gait. 5/5 strength, normal movement in all extremities, normal sensation PSYCH: Normal mood, normal affect. SKIN: Warm, dry, normal turgor, no visible rashes or lesions. Source: Patient, Family, Old records - Personal History Current Tetanus/Diphtheria Vaccine: Unsure Current Tetanus Diphtheria and Acellular Pertussis (TDAP): Unsure Tetanus Vaccine Date: WITHIN 10 YRS - Medical/Surgical History Hx Asthma: Yes Hx Chronic Respiratory Disease: Yes Hx Diabetes: Yes Hx Cardiac Disease: Yes Hx Renal Disease: No Hx Cirrhosis: No Hx Alcoholism: No Hx HIV/AIDS: No Hx Splenectomy or Spleen Trauma: No Other PMH: COPD, CHF, PROSTATE CA , sick sinus syndrome, pacemaker , HIP SHOULDER, NECK, BACK SURGERY; T2DM, gout, - Social History Smoking Status: Former smoker Alcohol Use: Sober Drug Use: None Constitutional: Initial Vital Signs Temperature (C) 36.7 C 03/18/17 12:25 Heart Rate 82 03/18/17 12:25 Respiratory Rate 22 H 03/18/17 12:25 Blood Pressure 142/70 H 03/18/17 12:25 O2 Sat (%) 92 03/18/17 12:25 O2 Delivery Mode Room Air Allergies/Adverse Reactions: No Known Allergies Allergy (Verified 03/18/17 12:29) Home Medications: Medication Instructions Recorded Albuterol [Proventil Inhaler HFA 2 puffs IH Q4 PRN 04/01/15 (*)] Aspirin [Aspirin 81mg (*)] 81 mg PO DAILY 04/01/15 Ferrous Sulfate [Ferrous Sulf 325 325 mg PO DAILY 04/01/15 MG (*)] Gabapentin [Neurontin 100 MG (*)] 100 mg PO BID 04/01/15 Metoprolol Tartrate [Lopressor 25 25 mg PO DAILY 04/01/15 mg (*)] Multivitamins [Multivitamin (*)] 1 each PO DAILY 04/01/15 Atorvastatin Calcium [Lipitor 20 20 mg PO DAILY 03/03/17 mg (*)] C/E/Zn/Cu/OM3/DHA/EPA/LUT/ZEAX 1 each PO DAILY 03/03/17 [Preservision Areds 2 Softgel] Calcium Carb W/Vit D [Calcium Carb 500 mg PO DAILY 03/03/17 W/Vit D 500/200 (*)] glipiZIDE [Glucotrol 5 mg] 5 mg PO BID@0800,1200 03/03/17 Fluticasone/Salmeter 250/50Mcg 1 puffs IH BID #1 disk 03/07/17 [Advair 250/50 (*)] Furosemide [Lasix 20 MG (*)] 20 mg PO DAILY #30 tab 03/07/17 Insulin Glargine [Lantus 100 25 units SC HS 03/18/17 UNITS/ML (*)] Tiotropium Inhaler [Spiriva 18 mcg IH DAILY@1000 03/18/17 Inhaler] Medical Decision Making - Diagnostics EKG Interpretation: An EKG obtained and was read and documented in trace view. Please see trace view for full reading and report. AV dual paced rhythm, unchanged from previous Imaging: Discussed imaging studies w/ director organizational Radiologist ED Course/Re-evaluation: 2:20 p.m. I discussed the case with Dr. Hess who will admit to the PCU. I have ordered Lasix. The patient does not fit the picture pneumonia or sepsis. I will not hold antibiotics and will minimize IV fluids. Differential Diagnosis: Partial list of the Differential diagnosis considered include but were not limited to; pneumonia, bronchitis, CHF and although unlikely based on the history and physical exam, I also considered pneumothorax. - Data Points Laboratory Results: Laboratory Results 03/18/17 13:10 03/18/17 13:15 Microbiology Results: MICROBIOLOGY 03/18/17 13:25 Blood Blood Culture - Preliminary 03/18/17 13:10 Blood Blood Culture - Preliminary Medications Given: Acetaminophen (Tylenol) 650 mg PO Q4HRS PRN PRN Reason: Pain, Mild/Fever, Can Take PO Stop: 09/14/17 14:46 Last Admin: 03/18/17 18:13 Dose: 650 mg Albuterol/Ipratropium (Duoneb) 3 ml IH Q4H DANIELLE Stop: 09/15/17 00:00 Last Admin: 03/20/17 11:46 Dose: 3 ml Aspirin (Aspirin) 81 mg PO DAILY DANIELLE Stop: 09/15/17 08:59 Last Admin: 03/20/17 08:44 Dose: 81 mg Atorvastatin Calcium (Lipitor) 20 mg PO DAILY DANIELLE Stop: 09/15/17 08:59 Last Admin: 03/20/17 08:43 Dose: 20 mg Enoxaparin Sodium (Lovenox) 30 mg SC DAILY DANIELLE Stop: 09/16/17 08:59 Last Admin: 03/20/17 08:43 Dose: 30 mg Ferrous Sulfate (Ferrous Sulfate) 325 mg PO DAILY DANIELLE Stop: 09/15/17 08:59 Last Admin: 03/20/17 08:43 Dose: 325 mg Gabapentin (Neurontin) 100 mg PO BID DANIELLE Stop: 09/14/17 20:59 Last Admin: 03/20/17 08:43 Dose: 100 mg Glipizide (Glucotrol) 5 mg PO BID@0800,1200 [facility] Stop: 09/15/17 07:59 Last Admin: 03/20/17 11:51 Dose: 5 mg Levofloxacin (Levaquin) 750 mg PO Q48H [facility] PRN Reason: Protocol Stop: 04/17/17 17:29 Last Admin: 03/18/17 18:10 Dose: 750 mg Metoprolol Tartrate (Lopressor) 25 mg PO DAILY DANIELLE Stop: 09/15/17 08:59 Last Admin: 03/20/17 08:44 Dose: 25 mg Senna (Senokot) 1 - 2 tab PO BID DANIELLE Stop: 09/14/17 22:29 Last Admin: 03/20/17 08:43 Dose: 1 tab Discontinued Medications Albuterol/Ipratropium (Duoneb) 3 ml IH EDNOW ONE Stop: 03/18/17 12:34 Last Admin: 03/18/17 13:43 Dose: 3 ml Albuterol/Ipratropium (Duoneb) 3 ml IH Q4H DANIELLE Stop: 09/14/17 17:29 Last Admin: 03/18/17 21:06 Dose: Not Given Enoxaparin Sodium (Lovenox) 40 mg SC DAILY DANIELLE Stop: 09/15/17 08:59 Last Admin: 03/19/17 07:57 Dose: 40 mg Furosemide (Lasix Injection) 40 mg IVP EDNOW ONE Stop: 03/18/17 14:24 Last Admin: 03/18/17 14:44 Dose: 40 mg Furosemide (Lasix) 20 mg PO DAILY [facility] Stop: 09/15/17 08:59 Last Admin: 03/20/17 08:43 Dose: 20 mg Sodium Chloride (Ns) 500 mls @ 1,000 mls/hr IV EDNOW ONE PRN Reason: Protocol Stop: 03/18/17 13:02 Last Admin: 03/18/17 17:19 Dose: Not Given Sodium Chloride (Ns) 500 mls @ 0 mls/hr IV ONCE ONE; Wide Open PRN Reason: Protocol Stop: 03/18/17 13:49 Last Admin: 03/18/17 13:49 Dose: 500 mls Insulin Glargine (Lantus Syringe) 25 units SC HS [facility] Stop: 09/14/17 20:59 Last Admin: 03/19/17 20:34 Dose: 25 units Insulin Human Lispro (Humalog Lispro) 0 unit SC TIDMEAL DANIELLE PRN Reason: Protocol Stop: 09/14/17 17:59 Last Admin: 03/20/17 08:42 Dose: 1 units Insulin Human Lispro (Humalog Lispro) 10 unit SC ONCE ONE Stop: 03/19/17 22:31 Last Admin: 03/19/17 22:06 Dose: Not Given Insulin Human Lispro (Humalog Lispro) 0 unit SC TIDMEAL DANIELLE PRN Reason: Protocol Stop: 09/16/17 11:59 Last Admin: 03/20/17 11:51 Dose: 4 units Prednisone (Prednisone) 40 mg PO DAILY [facility] Stop: 09/14/17 17:29 Last Admin: 03/20/17 08:44 Dose: 40 mg Departure - Departure Disposition: [facility] Acute Clinical Impression: CHF - Congestive heart failure Condition: Fair
--- NOTE | 2017-03-18 13:17 | CPEKG ---
Heart Rate: 75 RR Interval: 800 P-R Interval: 145 QRSD Interval: 174 QT Interval: 444 QTC Interval: 496 P [place]: 0 QRS [place]: -60 T Wave [place]: 110 EKG Severity - ABNORMAL ECG - EKG Impression: A-V DUAL-PACED RHYTHM WITH SOME INHIBITION EKG Impression: Unchanged from previous Electronically Signed By: Sachin Pro 18-Mar-2017 13:19:43
[2017-03-18 13:21] LABS: % IMMATURE GRANULYOCYTES 0.1 % (0.0-1.1); ABSOLUTE IMMATURE GRANULOCYTES 0.01 10^3/uL (0.00-0.10); ADD DIFF? NO; ADD MORPH? NO; ADD SCAN? NO; ATYPICAL LYMPHOCYTE FLAG 10 (0-99); FRAGMENT RBC FLAG 0 (0-99); HEMATOCRIT 30.2 % (40.0-51.0); HEMOGLOBIN 10.2 g/dL (13.7-17.5); LEFT SHIFT FLG 0 (0-99); LIPEMIA HEMOLYSIS FLAG 90 (0-99); MEAN CELL HEMOGLOBIN 32.8 pg (27.9-34.1); MEAN CELL HEMOGLOBIN CONCENTR. 33.8 g/dL (32.4-36.7); MEAN CELL VOLUME 97.1 fL (81.5-99.8); PLATELET CLUMPS FLAG 20 (0-99); PLATELET COUNT 308 10^3/uL (150-400); RED BLOOD CELL COUNT 3.11 10^6/uL (4.40-6.38); RED CELL DISTRIBUTION WIDTH 13.2 % (11.5-15.2)
[2017-03-18 13:31] LABS: INR 1.03 (0.83-1.16); PROTIME(PATIENT) 13.4 SEC (12.0-15.0)
[2017-03-18 13:32] LABS: APTT 42.4 SEC (23.0-38.0)
[2017-03-18 14:08] LABS: TROPONIN I 0.026 ng/mL (0.000-0.034)
[2017-03-18 14:23] LABS: CALCIUM 9.2 mg/dL (8.5-10.4); CREATININE 2.1 mg/dL (0.7-1.3); POTASSIUM 4.5 mEq/L (3.5-5.2)
[2017-03-18] MEDS ORDERED: FUROSEMIDE 40 MG/4 ML VIAL IVP ONE (14:23)
[2017-03-18] MEDS ORDERED: ONDANSETRON DISINTEGRATING 4 MG TAB PO PRN (14:47)
[2017-03-18] MEDS ORDERED: ONDANSETRON 4 MG/2 ML VIAL IVP PRN (14:47)
--- NOTE | 2017-03-18 15:03 | PDGENHP ---
History and Physical - Chief Complaint SOB, cough - History of Present Illness 81 yo male with h/o Type 2 DM, COPD, chronic systolic/diastolic heart failure and CKD who was just discharged from the hospital 11 days ago for COPD exacerbation in setting of RSV presents to ED with increased SOB and cough. His cough is productive and he complains of increased sputum production. Prior to discharge form recent hospitalization, he had been weaned off O2 and did require some diuresis. He denies fevers. He awoke this morning with cough and SOB. Unclear if this was orthopnea or simply increased respiratory symptoms. Denies chest pain. Denies LE edema. In the ED, he was given 40 mg IV Lasix for presumed HF exacerbation. He is admitted to the hospital for further management. History Information - Allergies/Home Medication List Allergies/Adverse Reactions: No Known Allergies Allergy (Verified 03/18/17 12:29) Home Medications: RX: Albuterol [Proventil Inhaler HFA (*)] 2 puffs IH Q4 PRN 04/01/15 [Last Taken 03/18/17 08:00] RX: Aspirin [Aspirin 81mg (*)] 81 mg PO DAILY 04/01/15 [Last Taken 03/18/17 08: 00] RX: Ferrous Sulfate [Ferrous Sulf 325 MG (*)] 325 mg PO DAILY 04/01/15 [Last Taken 03/18/17 08:00] RX: Gabapentin [Neurontin 100 MG (*)] 100 mg PO BID 04/01/15 [Last Taken 08:00] RX: Metoprolol Tartrate [Lopressor 25 mg (*)] 25 mg PO DAILY 04/01/15 [Last Taken 03/18/17 08:00] RX: Multivitamins [Multivitamin (*)] 1 each PO DAILY 04/01/15 [Last Taken 08:00] RX: Atorvastatin Calcium [Lipitor 20 mg (*)] 20 mg PO DAILY 03/03/17 [Last Taken 03/18/17 08:00] RX: C/E/Zn/Cu/OM3/DHA/EPA/LUT/ZEAX [Preservision Areds 2 Softgel] 1 each PO DAILY 03/03/17 [Last Taken 03/18/17 08:00] RX: Calcium Carb W/Vit D [Calcium Carb W/Vit D 500/200 (*)] 500 mg PO DAILY [Last Taken 03/18/17 08:00] RX: glipiZIDE [Glucotrol 5 mg] 5 mg PO BID@0800,1200 03/03/17 [Last Taken 12:00] RX: Insulin Glargine [Lantus 100 UNITS/ML (*)] 25 units SC HS 03/18/17 [Last Taken 03/17/17 21:00] Tiotropium Inhaler [Spiriva Inhaler] 18 mcg IH DAILY@1000 03/18/17 [Last Taken 03/18/17 10:00] I have personally reviewed and updated: family history, medical history, social history, surgical history - Past Medical History coronary artery disease, CHF, diabetes type 2, GERD, hypertension, hyperlipidemia Additional medical history: Stage 3 CKD baseline Cr 1.8-2. H/O prostate cancer - treated with Lupron and radiation 2012. SSS with pacemaker. CAD - angiogram 2008, normal. Dilated CM - EF 45% in 2011. Chronic systolic/diastolic heart failure. Anemia of CKD - Surgical History Additional surgical history: Cervical spine surgery. Right MAME. Pacemaker insertion. Shoulder surgery - Family History Positive for: diabetes type II - Social History Smoking Status: Former smoker Alcohol Use: Sober Drug Use: None Additional social history: Lives independently Review of Systems Review of Systems: ROS: 10pt was reviewed & negative except for what was stated in HPI & below Physical Exam Physical Exam: Temp Pulse Resp BP Pulse Ox 36.7 C 74 16 123/69 H 93 03/18/17 12:25 03/18/17 14:47 03/18/17 14:47 03/18/17 14:47 03/18/17 14:47 Lab Data & Imaging Review 03/18/17 13:10 03/18/17 13:15 WBC 9.23 10^3/uL (3.80-9.50) 03/18/17 13:10 RBC 3.11 10^6/uL (4.40-6.38) L 03/18/17 13:10 Hgb 10.2 g/dL (13.7-17.5) L 03/18/17 13:10 Hct 30.2 % (40.0-51.0) L 03/18/17 13:10 MCV 97.1 fL (81.5-99.8) 03/18/17 13:10 MCH 32.8 pg (27.9-34.1) 03/18/17 13:10 MCHC 33.8 g/dL (32.4-36.7) 03/18/17 13:10 RDW 13.2 % (11.5-15.2) 03/18/17 13:10 Plt Count 308 10^3/uL (150-400) 03/18/17 13:10 MPV 9.0 fL (8.7-11.7) 03/18/17 13:10 Neut % (Auto) 75.4 % (39.3-74.2) H 03/18/17 13:10 Lymph % (Auto) 15.0 % (15.0-45.0) 03/18/17 13:10 [place] % (Auto) 7.3 % (4.5-13.0) 03/18/17 13:10 Eos % (Auto) 1.8 % (0.6-7.6) 03/18/17 13:10 Baso % (Auto) 0.4 % (0.3-1.7) 03/18/17 13:10 Nucleat RBC Rel Count 0.0 % (0.0-0.2) 03/18/17 13:10 Absolute Neuts (auto) 6.96 10^3/uL (1.70-6.50) H 03/18/17 13:10 Absolute Lymphs (auto) 1.38 10^3/uL (1.00-3.00) 03/18/17 13:10 Absolute Monos (auto) 0.67 10^3/uL (0.30-0.80) 03/18/17 13:10 Absolute Eos (auto) 0.17 10^3/uL (0.03-0.40) 03/18/17 13:10 Absolute Basos (auto) 0.04 10^3/uL (0.02-0.10) 03/18/17 13:10 Absolute Nucleated RBC 0.00 10^3/uL (0-0.01) 03/18/17 13:10 Immature Gran % 0.1 % (0.0-1.1) 03/18/17 13:10 Immature Gran # 0.01 10^3/uL (0.00-0.10) 03/18/17 13:10 PT 13.4 SEC (12.0-15.0) 03/18/17 13:10 INR 1.03 (0.83-1.16) 03/18/17 13:10 APTT 42.4 SEC (23.0-38.0) H 03/18/17 13:10 VBG Lactic Acid 1.6 mmol/L (0.7-2.1) 03/18/17 13:10 Sodium 139 mEq/L (134-144) 03/18/17 13:15 Potassium 4.5 mEq/L (3.5-5.2) 03/18/17 13:15 Chloride 100 mEq/L (97-110) 03/18/17 13:15 Carbon Dioxide 29 mEq/l (22-31) 03/18/17 13:15 Anion Gap 10 mEq/L (8-16) 03/18/17 13:15 BUN 30 mg/dL (7-23) H 03/18/17 13:15 Creatinine 2.1 mg/dL (0.7-1.3) H 03/18/17 13:15 Estimated GFR 31 03/18/17 13:15 Glucose 160 mg/dL (70-100) H 03/18/17 13:15 Calcium 9.2 mg/dL (8.5-10.4) 03/18/17 13:15 Troponin I 0.026 ng/mL (0.000-0.034) 03/18/17 13:10 NT-Pro-B Natriuret Pep 1910 pg/mL (0-450) H 03/18/17 13:10 Visualized and Interpreted Chest x-ray results: Yes Chest X-Ray results: other (mild cardiomegaly, increased interstitial markings L >R) Visualized and Interpreted EKG results: Yes EKG additional interpertation: paced rhythm, unchanged from prior Assessment & Plan Assessment: Acute hypoxemic respiratory failure - Was 87% in ED, mid-90's on room air here. Suspect COPD exacerbation +/- PNA. Could also be HF component. Acute exacerbation of COPD +/- PNA -recently recovered from RSV, now with increased productive cough, wheezing. -schedule duonebs, prn albuterol nebs -oral prednisone -levaquin for possible PNA component based on CXR findings and elevated PCT, though afebrile and normal wbc's (defer HCAP tx for now unless his condition worsens, then consider broadening to Cefepime) Acute on chronic systolic/diastolic heart failure - Received 40 mg IV Lasix in ED. BNP up, but difficult to interpret with CKD. Weight was 81.1 kg on discharge 03/07, just 0.5 kg up today. Reviewed recent echo 02/2017 from [facility]: EF 45% (unchanged from 2012), grade 1 diastolic dysfunction. He does not appear significantly volume overloaded. -defer further IV Lasix, will resume oral Lasix in am at higher dose -monitor I&O's, daily weights -trend trop CAD - chest pain free. Cont ASA, BB, statin. -outpt risk stratification at [facility] (saw Dr. Beasley recently) CKD - Cr near baseline. Mehul d/c'd due to hyperkalemia. -follow with diuresis Anemia of CKD - Hgb at baseline ~10 Type 2 DM - a1c 7.7 02/2017, presenting BG 160 -cont Lantus and oral hypoglycemics when med rec completed -low dose SSI Hypertension - well controlled, cont current regimen Hyperlipidemia - cont statin DVT PPLX - Lovenox Dispo - obs Full code
[2017-03-18] MEDS ORDERED: D50W 25 GM/50 ML SYR IVP PRN (17:23)
[2017-03-18] MEDS ORDERED: ALBUTEROL 3 ML DEYVIAL IH PRN (17:24)
[2017-03-18] MEDS: INSULIN LISPRO 100 UNIT/ML SC SCH (18:11)
[2017-03-18] MEDS: ACETAMINOPHEN 325 MG TAB PO PRN (18:13)
[2017-03-18] MEDS: predniSONE 20 MG TAB PO SCH (18:20)
[2017-03-18] MEDS: GABAPENTIN 100 MG CAP PO SCH (20:35)
[2017-03-18] MEDS: IPRATROPIUM/ALBUTEROL 3 ML DEYVIAL IH SCH ×3 (20:56→23:21)
[2017-03-18] MEDS: INSULIN GLARGINE 100 UNITS/ML SYRINGE SC SCH (22:01)
[2017-03-18] MEDS: SENNOSIDES 1 TAB PO SCH (22:27)
[2017-03-19] MEDS: IPRATROPIUM/ALBUTEROL 3 ML DEYVIAL IH SCH ×5 (04:46→20:55)
[2017-03-19 04:53] LABS: HEMATOCRIT 29.8 % (40.0-51.0); HEMOGLOBIN 9.9 g/dL (13.7-17.5); MEAN CELL HEMOGLOBIN 32.5 pg (27.9-34.1); MEAN CELL HEMOGLOBIN CONCENTR. 33.2 g/dL (32.4-36.7); MEAN CELL VOLUME 97.7 fL (81.5-99.8); RED BLOOD CELL COUNT 3.05 10^6/uL (4.40-6.38)
[2017-03-19 05:09] LABS: ANION GAP 13 mEq/L (8-16); CALCIUM 9.1 mg/dL (8.5-10.4); CARBON DIOXIDE 25 mEq/l (22-31); CHLORIDE 100 mEq/L (97-110); CREATININE 2.3 mg/dL (0.7-1.3); GLOMERULAR FILTRATION RATE 28; GLUCOSE 263 mg/dL (70-100); POTASSIUM 5.1 mEq/L (3.5-5.2); SODIUM 138 mEq/L (134-144)
[2017-03-19] MEDS: METOPROLOL TARTRATE 25 MG TAB PO SCH (07:51)
[2017-03-19] MEDS: glipiZIDE 5 MG TAB PO SCH ×2 (07:51→13:32)
[2017-03-19] MEDS: FUROSEMIDE 20 MG TAB PO SCH (07:51)
[2017-03-19] MEDS: SENNOSIDES 1 TAB PO SCH ×2 (07:52→20:34)
[2017-03-19] MEDS: GABAPENTIN 100 MG CAP PO SCH ×2 (07:53→20:34)
[2017-03-19] MEDS: predniSONE 20 MG TAB PO SCH (07:53)
[2017-03-19] MEDS: ATORVASTATIN CALCIUM 20 MG TAB PO SCH (07:54)
[2017-03-19] MEDS: FERROUS SULFATE 325 MG TAB PO SCH (07:55)
[2017-03-19] MEDS: ASPIRIN 81 MG CHEWABLE TAB PO SCH (07:55)
[2017-03-19] MEDS: INSULIN LISPRO 100 UNIT/ML SC SCH ×4 (07:56→22:04)
[2017-03-19] MEDS ORDERED: FUROSEMIDE 40 MG TAB PO SCH (09:00)
[2017-03-19] MEDS ORDERED: ENOXAPARIN 40 MG/0.4 ML SYR SC SCH (09:00)
--- NOTE | 2017-03-19 11:56 | HOSPPROG ---
Hospitalist Progress Note Assessment/Plan: #Acute hypoxic resp failure:due to PNA COPD exacerbation. Treat with LQ. Negative viral panel. Min edema on CXR #PNA: procalcitonin up. LQ unless clinically declines #Deconditioning: PT/OT #Compensated systolic HF (EF 45%) and diastolic HF: not grossly overloaded. Got IV Lasix in ED, but resume home PO dose #CKD: baseline 1.7-2. 2.3 today. Watch with diuresis #CAD: ASA, statin, BB. Had appt with Dr. Beasley tomorrow; he is aware of hospitalization #DM: Metformin #COPD exacerbation: pred, Duonebs #HLD: statin #SSS: pacer #Diet: cardiac, DM #DVT ppx: Lovenox #Disp: warrants inpatient admission with deconditioning and hypoxia. Cont Duonebs, PT/OT Objective: Vital Signs Temp Pulse Resp BP Pulse Ox 36.7 C 90 16 116/65 96 03/19/17 11:27 03/19/17 11:27 03/19/17 11:27 03/19/17 11:27 03/19/17 11:27 Microbiology 03/19/17 07:20 - Final Sputum, Expectorated Laboratory Results 03/19/17 04:18 03/19/17 04:18 03/18/17 03/19/17 03/20/17 05:59 05:59 05:59 Intake Total 2085 Output Total 1250 Balance 835 PT 13.4 SEC (12.0-15.0) 03/18/17 13:10 INR 1.03 (0.83-1.16) 03/18/17 13:10 - Physical Exam Constitutional: no apparent distress, other (appears fatigued) Eyes: PERRL Ears, Nose, Mouth, Throat: moist mucous membranes Cardiovascular: regular rate and rhythym, no murmur, rub, or gallop, edema (+2 edema at ankles, sock line present) Respiratory: no respiratory distress, inspiratory crackles (left base) Gastrointestinal: normoactive bowel sounds, soft, non-tender abdomen Genitourinary: no bladder fullness Skin: warm Musculoskeletal: generalized weakness Neurologic: AAOx3, CN II-XII Intact Psychiatric: interacting appropriately ICD10 Worksheet Patient Problems: Problems Problem Status Onset CHF - Congestive heart failure Acute Acute renal failure syndrome Active Anemia of chronic disorder Active Diabetes mellitus type 2 Active Gout Active COPD (chronic obstructive pulmonary disease) Acute Chronic obstructive lung disease Acute Hypoxemia Acute Renal insufficiency syndrome Acute
--- NOTE | 2017-03-19 12:31 | ASMTCASEMG ---
Living Arrangements What is your living Answers: With Partner arrangement? Who do you live with? Type Of Residence What kind of residence do Answers: House you live in? Discharge Plan Comments Coordination Status Comments Notes: Pt is a 81 y/o man admitted for CHF exacerbation. Therapies have been ordered. PT is recommending HC. CM recieved a call from [facility] and pt is current w/ them. Pt will most likely d/c w/ HC when medically stable. CM to follow. Plan: [facility] Date Signed: 03/19/2017 12:31 PM Electronically Signed By:MARITA Parker
--- NOTE | 2017-03-19 16:41 | PDMN ---
Medical Necessity Medical necessity: M100 copd exacerbation- hypoxia,-87% in ED, SOB, cough, wheezing, - cPNA and heart failure, CKD , deconditioning - further eval , PT/ OT needed
[2017-03-19 18:26] LABS: GLUCOSE 389 mg/dL (70-100)
[2017-03-19] MEDS: INSULIN GLARGINE 100 UNITS/ML SYRINGE SC SCH (20:34)
[2017-03-19 21:18] LABS: GLUCOSE 490 mg/dL (70-100)
[2017-03-19] MEDS ORDERED: INSULIN LISPRO 100 UNIT/ML SC ONE (22:30)
[2017-03-20] MEDS: IPRATROPIUM/ALBUTEROL 3 ML DEYVIAL IH SCH ×6 (00:35→20:58)
[2017-03-20 05:27] LABS: ANION GAP 13 mEq/L (8-16); CARBON DIOXIDE 22 mEq/l (22-31); CHLORIDE 102 mEq/L (97-110); CREATININE 2.5 mg/dL (0.7-1.3); GLOMERULAR FILTRATION RATE 25; GLUCOSE 187 mg/dL (70-100); POTASSIUM 4.7 mEq/L (3.5-5.2); SODIUM 137 mEq/L (134-144)
[2017-03-20] MEDS: INSULIN LISPRO 100 UNIT/ML SC SCH (08:42)
[2017-03-20] MEDS: FUROSEMIDE 20 MG TAB PO SCH (08:43)
[2017-03-20] MEDS: ATORVASTATIN CALCIUM 20 MG TAB PO SCH (08:43)
[2017-03-20] MEDS: FERROUS SULFATE 325 MG TAB PO SCH (08:43)
[2017-03-20] MEDS: GABAPENTIN 100 MG CAP PO SCH ×2 (08:43→20:22)
[2017-03-20] MEDS: ENOXAPARIN 30 MG/0.3 ML SYR SC SCH (08:43)
[2017-03-20] MEDS: SENNOSIDES 1 TAB PO SCH ×2 (08:43→20:26)
[2017-03-20] MEDS: glipiZIDE 5 MG TAB PO SCH ×2 (08:43→11:51)
[2017-03-20] MEDS: predniSONE 20 MG TAB PO SCH (08:44)
[2017-03-20] MEDS: ASPIRIN 81 MG CHEWABLE TAB PO SCH (08:44)
[2017-03-20] MEDS: METOPROLOL TARTRATE 25 MG TAB PO SCH (08:44)
[2017-03-20] MEDS ORDERED: INSULIN GLARGINE 100 UNITS/ML SYRINGE SC SCH (08:53)
[2017-03-20] MEDS ORDERED: D50W 25 GM/50 ML SYR IVP PRN ×2 (09:14→18:11)
--- NOTE | 2017-03-20 09:17 | HOSPPROG ---
Hospitalist Progress Note Assessment/Plan: #Acute hypoxic resp failure:due to PNA COPD exacerbation. Treat with LQ. Negative viral panel. Min edema on CXR #PNA: procalcitonin up. LQ unless clinically declines #DM with hyperglycemia: due to steroids. Increase lantus to 30unit qhs, SSI #Deconditioning: PT/OT #Compensated systolic HF (EF 45%) and diastolic HF: not grossly overloaded. Got IV Lasix in ED, but resume home PO dose #CKD: baseline 1.7-2. 2.5. Hold lasix. Check urine lytes #CAD: ASA, statin, BB. Had appt with Dr. Beasley; he is aware of hospitalization #COPD exacerbation: pred, Duonebs #HLD: statin #SSS: pacer #Diet: cardiac, DM #DVT ppx: Lovenox #Disp: warrants inpatient admission with deconditioning and hypoxia. Cont Duonebs, PT/OT Subjective: cough improved. No CP Objective: Vital Signs Temp Pulse Resp BP Pulse Ox 36.3 C 74 20 139/65 H 96 03/20/17 08:09 03/20/17 09:07 03/20/17 09:07 03/20/17 08:09 03/20/17 09:07 Microbiology 03/19/17 07:20 - Final Sputum, Expectorated Laboratory Results 03/19/17 04:18 03/20/17 04:22 03/19/17 03/20/17 03/21/17 05:59 05:59 05:59 Intake Total 2085 470 Output Total 1250 375 Balance 835 95 PT 13.4 SEC (12.0-15.0) 03/18/17 13:10 INR 1.03 (0.83-1.16) 03/18/17 13:10 - Physical Exam Constitutional: no apparent distress Eyes: PERRL Ears, Nose, Mouth, Throat: moist mucous membranes Cardiovascular: regular rate and rhythym, edema (+2 ankle edema), other ( crackles left base improved) Respiratory: other Gastrointestinal: normoactive bowel sounds Genitourinary: no bladder fullness, No lomeli in urethra Skin: warm Musculoskeletal: full muscle strength Neurologic: AAOx3, numbness Psychiatric: interacting appropriately ICD10 Worksheet Patient Problems: Problems Problem Status Onset CHF - Congestive heart failure Acute Acute renal failure syndrome Active Anemia of chronic disorder Active Diabetes mellitus type 2 Active Gout Active COPD (chronic obstructive pulmonary disease) Acute Chronic obstructive lung disease Acute Hypoxemia Acute Renal insufficiency syndrome Acute
[2017-03-20] MEDS ORDERED: INSULIN LISPRO 100 UNIT/ML SC SCH (12:00)
--- NOTE | 2017-03-20 16:44 | CPEKG ---
Heart Rate: 100 RR Interval: 600 QRSD Interval: 166 QT Interval: 412 QTC Interval: 532 QRS Bend: -61 T Wave Bend: 110 EKG Severity - ABNORMAL ECG - EKG Impression: AFIB/FLUT AND V-PACED COMPLEXES Electronically Signed By: Mark Lieberman 21-Mar-2017 20:52:59
[2017-03-20] MEDS ORDERED: PARAMETERS MISC PRN (18:11)
[2017-03-20] MEDS ORDERED: D50W 25 GM/50 ML VIAL IVP PRN (18:11)
[2017-03-20] MEDS: INSULIN LISPRO 100 UNIT/1 ML VIAL HIGH SC SCH (18:19)
[2017-03-20 21:47] LABS: GLUCOSE 299 mg/dL (70-100)
[2017-03-21] MEDS: IPRATROPIUM/ALBUTEROL 3 ML DEYVIAL IH SCH ×3 (00:12→10:19)
[2017-03-21] MEDS: ACETAMINOPHEN 325 MG TAB PO PRN (04:03)
[2017-03-21 04:43] LABS: ANION GAP 12 mEq/L (8-16); CALCIUM 8.9 mg/dL (8.5-10.4); CARBON DIOXIDE 27 mEq/l (22-31); CHLORIDE 100 mEq/L (97-110); CREATININE 2.3 mg/dL (0.7-1.3); GLOMERULAR FILTRATION RATE 28; GLUCOSE 204 mg/dL (70-100); POTASSIUM 4.7 mEq/L (3.5-5.2); SODIUM 139 mEq/L (134-144)
[2017-03-21 07:31] VITALS: TEMP 97.5
[2017-03-21] MEDS: ENOXAPARIN 30 MG/0.3 ML SYR SC SCH (08:41)
[2017-03-21] MEDS: FERROUS SULFATE 325 MG TAB PO SCH (08:42)
[2017-03-21] MEDS: glipiZIDE 5 MG TAB PO SCH ×2 (08:42→12:21)
[2017-03-21] MEDS: INSULIN LISPRO 100 UNIT/1 ML VIAL HIGH SC SCH (08:42)
[2017-03-21] MEDS: ATORVASTATIN CALCIUM 20 MG TAB PO SCH (08:42)
[2017-03-21] MEDS: GABAPENTIN 100 MG CAP PO SCH (08:42)
[2017-03-21] MEDS: ASPIRIN 81 MG CHEWABLE TAB PO SCH (08:42)
[2017-03-21] MEDS: METOPROLOL TARTRATE 25 MG TAB PO SCH (08:45)
[2017-03-21 08:46] VITALS: BP 140/70
[2017-03-21] MEDS: SENNOSIDES 1 TAB PO SCH (08:49)
[2017-03-21 10:22] VITALS: RESP 18
[2017-03-21 10:51] VITALS: PULSE 73; O2SAT 95
--- NOTE | 2017-03-21 11:11 | HOSPPROG ---
Hospitalist Progress Note Assessment/Plan: #Acute hypoxic resp failure: due to PNA and COPD exacerbation. Resolved. LQ x 1 more day outpatient, renally dosed. Negative viral panel. Min edema on CXR #PNA: procalcitonin up. LQ unless clinically declines #DM with hyperglycemia: due to steroids. Reduce back to home dose now steroids stopped #Deconditioning: PT/OT #Compensated systolic HF (EF 45%) and diastolic HF: not grossly overloaded. Got IV Lasix in ED, but resume home PO dose #CKD: baseline 1.7-2. Down today. May resume home lasix #CAD: ASA, statin, BB. Had appt with Dr. Beasley; he is aware of hospitalization #COPD exacerbation: pred, Duonebs #HLD: statin #SSS: pacer #Diet: cardiac, DM #DVT ppx: Lovenox #Disp: DC today with home health, RN, PT/OT Subjective: no SOB, minimal cough Objective: Vital Signs Temp Pulse Resp BP Pulse Ox 36.4 C 73 18 140/70 H 95 03/21/17 07:30 03/21/17 10:49 03/21/17 10:21 03/21/17 08:45 03/21/17 10:49 Microbiology 03/19/17 07:20 - Final Sputum, Expectorated Laboratory Results 03/19/17 04:18 03/21/17 04:10 03/20/17 03/21/17 03/22/17 05:59 05:59 05:59 Intake Total 470 610 Output Total 375 625 Balance 95 -15 PT 13.4 SEC (12.0-15.0) 03/18/17 13:10 INR 1.03 (0.83-1.16) 03/18/17 13:10 - Physical Exam Constitutional: no apparent distress, other (more color to face) Eyes: PERRL Ears, Nose, Mouth, Throat: moist mucous membranes Cardiovascular: regular rate and rhythym, edema (+1 ankle edema) Respiratory: no respiratory distress, No no rales or rhonchi Gastrointestinal: normoactive bowel sounds, soft, non-tender abdomen Genitourinary: no bladder fullness Skin: warm Musculoskeletal: full muscle strength Neurologic: AAOx3, CN II-XII Intact Psychiatric: interacting appropriately ICD10 Worksheet Patient Problems: Problems Problem Status Onset Acute renal failure syndrome Active Anemia of chronic disorder Active Diabetes mellitus type 2 Active Gout Active CHF - Congestive heart failure Acute COPD (chronic obstructive pulmonary disease) Acute Chronic obstructive lung disease Acute Hypoxemia Acute Renal insufficiency syndrome Acute
--- NOTE | 2017-03-21 11:12 | PDIAF ---
- Diagnosis Diagnosis: Pneumonia Code Status: Full Code - Medication Management Discharge Medications: Medications to Continue on Transfer Albuterol [Proventil Inhaler HFA (*)] 2 puffs IH Q4 PRN 04/01/15 [Last Taken 08/28 08:00] Aspirin [Aspirin 81mg (*)] 81 mg PO DAILY 04/01/15 [Last Taken 03/18/17 08:00] Ferrous Sulfate [Ferrous Sulf 325 MG (*)] 325 mg PO DAILY 04/01/15 [Last Taken 03/18/17 08:00] Gabapentin [Neurontin 100 MG (*)] 100 mg PO BID 04/01/15 [Last Taken 03/18/17 08 :00] Metoprolol Tartrate [Lopressor 25 mg (*)] 25 mg PO DAILY 04/01/15 [Last Taken 08:00] Multivitamins [Multivitamin (*)] 1 each PO DAILY 04/01/15 [Last Taken 03/18/17 08:00] Atorvastatin Calcium [Lipitor 20 mg (*)] 20 mg PO DAILY 03/03/17 [Last Taken 08/28 08:00] C/E/Zn/Cu/OM3/DHA/EPA/LUT/ZEAX [Preservision Areds 2 Softgel] 1 each PO DAILY [Last Taken 03/18/17 08:00] Calcium Carb W/Vit D [Calcium Carb W/Vit D 500/200 (*)] 500 mg PO DAILY [Last Taken 03/18/17 08:00] glipiZIDE [Glucotrol 5 mg] 5 mg PO BID@0800,1200 03/03/17 [Last Taken 03/18/17 12:00] Fluticasone/Salmeter 250/50Mcg [Advair 250/50 (*)] 1 puffs IH BID #1 disk [Last Taken 03/18/17 08:00] Furosemide [Lasix 20 MG (*)] 20 mg PO DAILY #30 tab 03/07/17 [Last Taken 08:00] Insulin Glargine [Lantus 100 UNITS/ML (*)] 25 units SC HS 03/18/17 [Last Taken 03/17/17 21:00] Tiotropium Inhaler [Spiriva Inhaler (RX)] 18 mcg IH DAILY@1000 03/18/17 [Last Taken 03/18/17 10:00] levOFLOXACIN [levAQUIN (*)] 750 mg PO Q48H #1 tab 03/21/17 [Last Taken Unknown] Discharge Medications: Refer to the Discharge Home Medication list for PRN reason. - Orders Services needed: Home Care, Registered Nurse, Certified Cigarette Packer, Physical Therapy, Occupational Therapy Home Care Face to Face: I certify that this patient was under my care and that I had the required [id number] encounter meeting the encounter requirements on the discharge day. My findings support the fact that the patient is homebound as defined in Home Care Face to Face Continued: CMS Chapter 7 Medicare Benefits Manual 30.1.1 , The condition of the patient is such that there exists a normal inability to leave home and consequently, leaving home would require a considerable and taxing effort. Isolation Type: None Diet Recommendation: sodium restricted Diet Texture: Regular Texture Diet, Thin Liquids, Meds Whole w/Liquids - Follow Up Care Current Providers and Referrals: Samara Barfield MD [Primary Care Provider] - As per Instructions
--- NOTE | 2017-03-21 11:36 | PDIAF ---
- Diagnosis Diagnosis: Pneumonia Code Status: Full Code - Medication Management Discharge Medications: Medications to Continue on Transfer Albuterol [Proventil Inhaler HFA (*)] 2 puffs IH Q4 PRN 04/01/15 [Last Taken 08/28 08:00] Aspirin [Aspirin 81mg (*)] 81 mg PO DAILY 04/01/15 [Last Taken 03/18/17 08:00] Ferrous Sulfate [Ferrous Sulf 325 MG (*)] 325 mg PO DAILY 04/01/15 [Last Taken 03/18/17 08:00] Gabapentin [Neurontin 100 MG (*)] 100 mg PO BID 04/01/15 [Last Taken 03/18/17 08 :00] Metoprolol Tartrate [Lopressor 25 mg (*)] 25 mg PO DAILY 04/01/15 [Last Taken 08:00] Multivitamins [Multivitamin (*)] 1 each PO DAILY 04/01/15 [Last Taken 03/18/17 08:00] Atorvastatin Calcium [Lipitor 20 mg (*)] 20 mg PO DAILY 03/03/17 [Last Taken 08/28 08:00] C/E/Zn/Cu/OM3/DHA/EPA/LUT/ZEAX [Preservision Areds 2 Softgel] 1 each PO DAILY [Last Taken 03/18/17 08:00] Calcium Carb W/Vit D [Calcium Carb W/Vit D 500/200 (*)] 500 mg PO DAILY [Last Taken 03/18/17 08:00] glipiZIDE [Glucotrol 5 mg] 5 mg PO BID@0800,1200 03/03/17 [Last Taken 03/18/17 12:00] Fluticasone/Salmeter 250/50Mcg [Advair 250/50 (*)] 1 puffs IH BID #1 disk [Last Taken 03/18/17 08:00] Furosemide [Lasix 20 MG (*)] 20 mg PO DAILY #30 tab 03/07/17 [Last Taken 08:00] Insulin Glargine [Lantus 100 UNITS/ML (*)] 25 units SC HS 03/18/17 [Last Taken 03/17/17 21:00] Tiotropium Inhaler [Spiriva Inhaler (RX)] 18 mcg IH DAILY@1000 03/18/17 [Last Taken 03/18/17 10:00] Albuterol Sulfate [ALBUTEROL SULFATE] 0.63 mg IH Q6H #30 vial.neb 03/21/17 [ Last Taken Unknown] levOFLOXACIN [levAQUIN (*)] 750 mg PO Q48H #1 tab 03/21/17 [Last Taken Unknown] Discharge Medications: Refer to the Discharge Home Medication list for PRN reason. - Orders Services needed: Home Care, Registered Nurse, Certified Greenhouse Assistant, Physical Therapy, Occupational Therapy Home Care Face to Face: I certify that this patient was under my care and that I had the required [id number] encounter meeting the encounter requirements on the discharge day. My findings support the fact that the patient is homebound as defined in Home Care Face to Face Continued: CMS Chapter 7 Medicare Benefits Manual 30.1.1 , The condition of the patient is such that there exists a normal inability to leave home and consequently, leaving home would require a considerable and taxing effort. Isolation Type: None Diet Recommendation: sodium restricted Diet Texture: Regular Texture Diet, Thin Liquids, Meds Whole w/Liquids - Labs/Radiology Creatinine Date: 03/24/17 - Follow Up Care Current Providers and Referrals: Samara Barfield MD [Primary Care Provider] - follow up in 1 week (Follow up BMP for Creatinine)
[2017-03-21] MEDS ORDERED: INSULIN LISPRO 100 UNIT/ML SC SCH (12:00)
--- NOTE | 2017-03-21 12:18 | GDS ---
[f rep st] DISCHARGE SUMMARY DISCHARGE DIAGNOSES: 1. Acute hypoxic respiratory failure. 2. Chronic obstructive pulmonary disease exacerbation. 3. Pneumonia. 4. Type 2 diabetes. 5. Compensated systolic/diastolic heart failure. 6. Chronic kidney disease. 7. Recent respiratory syncytial virus infection with 11 day hospitalization. 8. Coronary artery disease. 9. Gastroesophageal reflux disease. 10. Hypertension. 11. Hyperlipidemia. 12. Sick sinus syndrome status post pacemaker. 13. Anemia of renal disease. HISTORY OF PRESENT ILLNESS: A pleasant 81-year-old male with history of type 2 diabetes, coronary disease, COPD, chronic systolic/diastolic heart failure, who was just discharged 11 days prior to admission for COPD exacerbation with RSV infection. He returned this admission with increased shortness of breath and cough. He states that it is productive and has increased green sputum. He denies fevers. Denies chest pain or increased lower extremity edema. In the emergency room, he was given 40 mg of Lasix for presumed CHF exacerbation. HOSPITAL COURSE BY PROBLEM: 1. Acute hypoxic respiratory failure: This is secondary to COPD exacerbation in the setting of pneumonia. This is resolved. He was treated with DuoNeb, steroids. He will receive 1 more dose of antibiotics. 2. Community-acquired pneumonia: Recently treated for RSV. Repeat respiratory panel was negative here. Given elevated procalcitonin, was treated with Levaquin with good response. He will receive 1 more dose tomorrow that was renally dosed given his underlying CKD. 3. Diabetes with hyperglycemia: Sugars were hard to treat here given prednisone. This was discontinued and they have improved. He can resume his home insulin dose. 4. Deconditioning. Will have home PT, OT. 5. Compensated systolic heart failure, EF 45%/diastolic heart failure: Not grossly overloaded. He did get a dose of Lasix in the emergency room. However , just resumed his home p.o. dose. 6. Acute kidney injury on chronic kidney disease. Baseline was 1.7-2. Was elevated as high as 2.5, likely secondary to mild dehydration. This has trended down to 2.3. We will have home health repeat on Friday. 7. History of coronary artery disease. Aspirin, statin, beta sun. He did have an appointment with Dr. Durant that he was not able to meet with the hospitalization. He should follow up with him when convenient. 8. COPD exacerbation: Again, was treated with prednisone, DuoNeb with improvement. 9. Hyperlipidemia: Statin. 10. History of sick sinus syndrome, status post pacemaker. DISPOSITION: Patient is stable for discharge home with his . Social work to arrange PT, OT, home nurse and CERTIFIED RECREATIONAL THERAPIST. NEW MEDICATIONS: Levaquin 750 mg x1. FOLLOW UP: 1. Primary care physician. 2. Dr. Durant. /[id number]/MODL MTDD
--- NOTE | 2017-03-21 16:54 | ASDISCHSUM ---
Discharge Information Plan Status:Home with Home Health Medically Cleared to Leave:03/20/2017 Discharge Date:03/21/2017 12:45 PM D/C Disposition: ADT D/C Disposition:Home, Routine, Self-Care Projected Discharge Date:03/21/2017 11:00 AM Transportation at D/C: Discharge Delay Reason: Follow-Up Date:03/21/2017 11:00 AM Discharge Slot: Final Diagnosis: Placement Information Referral Type:*Home Health Care Services Referral ID:[id number] Provider Name:[facility] Address 1:[address] [place] [address] Address 2: City:[place] Selection Factors: State:[place] Patient Contact Information Contact Name:KENDALL Relationship: Address:[address] Work Phone: City:[place] Alternate Phone: [facility]/Zip Code:[place] [address] Email: Financial Information Financial Class:Medicare Advantage Plans Primary Plan Desc:[facility] [employer] Primary Plan Number:[id number] Secondary Plan Desc: Secondary Plan Number: Assessment Information [facility] Initial CM Assessment Living Arrangements What is your living Answers: With Partner arrangement? Who do you live with? Type Of Residence What kind of residence do Answers: House you live in? Discharge Plan Comments Coordination Status Comments Notes: Pt is a 81 y/o man admitted for CHF exacerbation. Therapies have been ordered. PT is recommending HC. CM recieved a call from [facility] and pt is current w/ them. Pt will most likely d/c w/ HC when medically stable. CM to follow. Plan: [facility] Date Signed: 03/19/2017 12:31 PM Electronically Signed By:MARITA Parker Case Management Discharge Plan Note Case Management Discharge Discharge Order Complete? Answers: Yes Patient to Obtain Answers: via Family Medications Transportation Arranged Answers: Family/Friends Transport will Pick (Date 03/21/2017 12:00 AM & Time) EMTALA Complete Answers: No Case Management Transport Answers: No Form Complete Faxed Final Orders Answers: Yes Agency/Facility Transfer Answers: Yes Report Printed & Faxed to Receiving Agency Family Notified Answers: No Discharge Comments Notes: Pt is being discharged today w/ [facility]; RN, PT, OT, FINANCE CONSULTANT. CM notified [facility] and they are able to follow pt. CM provided HUSSEIN Hill w/ phone number to give report to [facility]. Cm available for changes. Plan: [facility]; RN, PT, OT, FINANCE CONSULTANT Date Signed: 03/21/2017 12:34 PM Electronically Signed By:MARITA Parker Intervention Information Intervention Type:*Incorrect Registration Date of Service:03/19/2017 07:21 AM Patient Type:Observation Staff Member:HUSSEIN Bowman, Azra Hours: Discipline: Severity: Comment: Intervention Type:*ANNALISE-Signed Date of Service:03/19/2017 02:14 PM Patient Type:Observation Staff Member:Nicolette Bush Hours: Discipline: Severity: Comment:
== END 2017-03-21 12:45 | disposition home or self-care (01) | DRG 189 ==
LOC: CED 12:18 → CEDHOLD 14:24 → OBSVTOIN 15:34 → F2W 16:52
PROVIDERS: ADMIT Hospitalist; ATTEND Hospitalist
DX: J96.01 Acute respiratory failure with hypoxia (principal); I13.0 Hypertensive heart and chronic kidney disease with heart failure and stage 1 through stage 4 chronic kidney disease, or unspecified chronic kidney disease; I50.43 Acute on chronic combined systolic (congestive) and diastolic (congestive) heart failure; J18.8 Other pneumonia, unspecified organism; J44.1 Chronic obstructive pulmonary disease with (acute) exacerbation; N17.9 Acute kidney failure, unspecified; E86.0 Dehydration; N18.9 Chronic kidney disease, unspecified; E11.65 Type 2 diabetes mellitus with hyperglycemia; I25.10 Atherosclerotic heart disease of native coronary artery without angina pectoris; K21.9 Gastro-esophageal reflux disease without esophagitis; D63.1 Anemia in chronic kidney disease; E78.5 Hyperlipidemia, unspecified; Z95.0 Presence of cardiac pacemaker; Z87.891 Personal history of nicotine dependence
CPT/HCPCS: 71020-PO; 80048-PO; 82947-QW; 83605-PO; 83880-PO; 84484-PO; 85025-PO; 85610-PO; 85730-PO; 92610-GN; 96374; 97161-GP; 97165-GO; 97535-GO; G8978-GP-CI; G8979-GP-CH; G8987-GO-CJ; G8988-GO-CI; G8996-GN-CH; G8997-GN-CH; G8998-GN-CH; J1650; J1815; J1940

== ENCOUNTER → 2017-05-30 | Outpatient (CLI) | payer OTHER | LOC: BRMIMAGING 10:57 | PROVIDERS: ATTEND Internal Medicine Hematology & Oncology | DX: Z13.820 Encounter for screening for osteoporosis (principal); M85.89 Other specified disorders of bone density and structure, multiple sites; Z85.46 Personal history of malignant neoplasm of prostate; Z87.81 Personal history of (healed) traumatic fracture; Z96.641 Presence of right artificial hip joint ==

== ENCOUNTER 2018-01-01 08:06 | Observation (INO) | payer OTHER ==
[2018-01-01] MEDS ORDERED: DIAZEPAM 5 MG TAB PO ONE (08:33)
[2018-01-01] MEDS ORDERED: FAMOTIDINE 20 MG TAB PO ONE (08:33)
[2018-01-01] MEDS ORDERED: NS 1,000 ML IV ONE (08:33)
[2018-01-01] MEDS ORDERED: ASPIRIN EC 325 MG TAB PO ONE ×2 (08:33→12:07)
[2018-01-01] MEDS ORDERED: diphenhydrAMINE 25 MG CAP PO ONE ×2 (08:33→12:07)
[2018-01-01 09:33] LABS: PLATELET COUNT 262 10^3/uL (150-400)
[2018-01-01 09:40] LABS: INR 0.99 (0.83-1.16); PROTIME(PATIENT) 13.3 SEC (12.0-15.0)
[2018-01-01] MEDS ORDERED: FAMOTIDINE 20 MG TAB ONE (12:07)
--- NOTE | 2018-01-01 12:21 | CPEKG ---
Test Reason : OPEN Blood Pressure : / mmHG Vent. Rate : 077 BPM Atrial Rate : 000 BPM P-R Int : 094 ms QRS Dur : 177 ms QT Int : 474 ms P-R-T Axes : 000 -65 109 degrees QTc Int : 537 ms A-V dual-paced rhythm with some inhibition Prior ECG with atrial fibrillation Confirmed by Luis M Carter ([id number]) on 01/01/2018 12:20:59 PM Referred By: Confirmed By:Luis M Carter
[2018-01-01] MEDS ORDERED: fentaNYL 100 MCG/2 ML INJ ONE (14:17)
[2018-01-01] MEDS ORDERED: LIDOCAINE 1% 300 MG/30 ML SDV ONE (14:17)
[2018-01-01] MEDS ORDERED: IOPAMIDOL (ISOVUE-370) 150 ML BTL IV ONE (14:17)
[2018-01-01] MEDS ORDERED: MIDAZOLAM 2 MG/2 ML VIAL ONE (14:17)
--- NOTE | 2018-01-01 14:25 | PDPROPOC ---
Sedation Plan of Care Sedation Plan of Care: vital signs stable, mental status noted, patient educated of risks, benefits, alternatives, patient can tolerate sedation ASA Classification: ASA 3 Planned drugs: fentanyl, midazolam Mallampati Score: Class 3 Mallampati Reference Image: Patient passed 3-3-2 rule?: No
--- NOTE | 2018-01-01 14:25 | PDHPUP ---
History & Physical Update H&P update statement: This history and physical update is based on an assessment of the patient which was completed after admission or registration (within 24 hours), but prior to the surgery/procedure. H&P update: H&P reviewed & patient examined, no change in patient's condition since H&P completed
[2018-01-01] MEDS ORDERED: OXYCODONE/APAP 5/325 TAB PO PRN (15:40)
[2018-01-01] MEDS ORDERED: NITROGLYCERIN 0.4 MG BTL SL PRN (15:40)
[2018-01-01] MEDS ORDERED: HYDROCODONE/APAP 5/325 TAB PO PRN (15:40)
[2018-01-01] MEDS ORDERED: ATROPINE SULFATE 1 MG/10 ML SYR IVP PRN (15:40)
[2018-01-01] MEDS ORDERED: ONDANSETRON 4 MG/2 ML VIAL IVP PRN (15:40)
--- NOTE | 2018-01-01 16:24 | CPIP ---
DATE OF PROCEDURE: 01/01/2018 PROCEDURE PERFORMED: 1. Right and left heart catheterization. 2. Selective coronary angiography. A left ventriculogram was not performed to save contrast medium, given the patient's history of chronic and significant renal insufficiency. 3. Manual pressure arteriotomy repair. COMPLICATIONS: None. MERCHANDISING CONSULTANT: Christopher Lieberman MD. OPERATIVE INDICATION: The patient has a high-risk stress test with [place] Heart Association class 4 symptoms of shortness of breath at rest. This is an anginal equivalent in this diabetic man with C CS class 4 angina, as well. PROCEDURE IN DETAIL: After informed consent was obtained and n.p.o. status was confirmed, the region the right groin was cleaned, prepped, and draped in sterile fashion. A micropuncture set was used t o gain access to the right common femoral artery, and a 6-Mongolian sheath was established in that arter y. The same micropuncture set was then used to gain access to the right femoral vein, and a 7-Mongolian sheath was placed there. A 7-Mongolian balloon-tipped [place] catheter was then used to perform righ t heart catheterization and a sat run. The AO pressure was 96.9, PA pressure simultaneous 69.4, SVC sat was 78.3, IVC sat was 80.7. The Tara cardiac output was measured at 4.93, index 2.62; he had a h eart rate of 66 beats per minute. The pulmonary capillary wedge pressure was a mean of 12, A-wave 14 , V-wave 15, PA pressure was 33/19 with a mean pressure of 24, RV pressure 35/4 with end-diastolic pr essure of 11. Right atrial pressure was a mean pressure of 3 with A-waves of 3 and V-waves of 10. A ortic pressure measured 115/60 with a mean pressure of 86 at a heart rate of 70. The pulmonary vascu lar resistance was measured at 2.43 Silvestre units, and when indexed for the patient's body size, was 4. 58 Silvestre units. The patient then underwent selective coronary angiography with the use of JR4 and L4 curved coronary catheter, as well as with JL4 and JR4 coronary catheters. Standard wire exchange technique was utili zed for all catheter exchanges. The left main coronary lumen is approximately 5 mm in size, bifurcates into an LAD and circumflex sys tem. The LAD is approximately 3.5 mm in size. It gives rise to a 2.5 mm diagonal vessel, which has a 50% stenosis in its mid course. The LAD is free of significant flow-limiting disease, but is a rel atively small vessel compared to the circumflex and right coronary. This may result in differential perfusion of the anterior wall and a suggestion of anterior ischemia on the anterior wall. There is no evidence of flow-limiting obstruction, dissection, or thrombus of the vessel and MARJORIE-3 flow was p resent. The circumflex gives rise to an important obtuse marginal branch x2 of 2.5 To 3 mm in size. There is no flow-limiting obstruction, dissection, or thrombus. The right coronary artery is dominant, giving rise to posterior descending as well as a posterolatera l ventricular branch. There are luminal irregularities consistent with underlying atherosclerosis. No flow-limiting obstruction is identified. Maximal luminal stenosis is 30% to 40% and looks actuall y improved compared to a heart catheterization in 2012. SUMMARY OF FINDINGS: Relatively normal right-sided pressures with preserved cardiac output and index at rest. The patient does not have evidence of pulmonary hypertension. The patient has ute vess el coronary disease, which appears to be unchanged compared to a catheterization in 2012. I did not feel that the diagonal lesion warranted stenting, given that the nuclear stress test abnormalities we re located in the inferior wall and anterior apex and not in the anterolateral wall. Therefore, we d id not stent the diagonal lesion as I did not think it would be likely to improve the patient's sympt oms of breathlessness. His ejection fraction was not measured during this study and may well be decr eased on the basis of the nuclear stress test, which may be the most likely source of the patient's c linical symptoms. If the patient's ejection fraction is truly in the 30s, then he would appear to aceves ve a nonischemic cardiomyopathy. /[id number]/MODL
[2018-01-01] MEDS ORDERED: ONDANSETRON DISINTEGRATING 4 MG TAB PO PRN (18:33)
[2018-01-01] MEDS ORDERED: traMADol 50 MG TAB PO PRN (18:36)
[2018-01-01] MEDS ORDERED: ALBUTEROL 60 PUFFS/8 GM MDI IH PRN (18:36)
[2018-01-01] MEDS ORDERED: FLUTICASONE NASAL 120 SPRAYS/16 GM MDI EACHNARE PRN (18:36)
[2018-01-01] MEDS ORDERED: D50W 25 GM/50 ML SYR IVP PRN (18:41)
[2018-01-01] MEDS ORDERED: KETOCONAZOLE 2% 120 ML SHAMPOO TP SCH (18:45)
[2018-01-01] MEDS: FLUOCINONIDE 0.05% 15 GM CREAM TP SCH (20:52)
[2018-01-01] MEDS ORDERED: INSULIN GLARGINE 100 UNITS/ML UNIT SC SCH (21:00)
[2018-01-01] MEDS: GABAPENTIN 100 MG CAP PO SCH (21:14)
[2018-01-01] MEDS: ALBUTEROL SULFATE 0.63 MG IH SCH (21:44)
[2018-01-02 04:22] LABS: PLATELET COUNT 245 10^3/uL (150-400)
[2018-01-02] MEDS: ALBUTEROL SULFATE 0.63 MG IH SCH (04:55)
[2018-01-02 07:19] VITALS: BP 113/63
[2018-01-02] MEDS ORDERED: glipiZIDE 5 MG TAB PO SCH (08:00)
[2018-01-02] MEDS ORDERED: ATORVASTATIN CALCIUM 20 MG TAB PO SCH (09:00)
[2018-01-02] MEDS ORDERED: METOPROLOL TARTRATE 25 MG TAB PO SCH (09:00)
[2018-01-02] MEDS ORDERED: CALCIUM CARB W/VIT D 500 MG TAB PO SCH (09:00)
[2018-01-02] MEDS ORDERED: MULTIVITAMINS 1 EACH TAB PO SCH (09:00)
[2018-01-02] MEDS ORDERED: FERROUS SULFATE 325 MG TAB PO SCH (09:00)
[2018-01-02] MEDS ORDERED: ASPIRIN 81 MG CHEWABLE TAB PO SCH (09:00)
[2018-01-02] MEDS ORDERED: PRESERVISION AREDS2 FORMULA EYE VIT 1 EACH PO SCH (09:00)
[2018-01-02] MEDS ORDERED: LISINOPRIL 2.5 MG TAB PO SCH (09:00)
[2018-01-02] MEDS: GABAPENTIN 100 MG CAP PO SCH (09:01)
[2018-01-02] MEDS: FLUOCINONIDE 0.05% 15 GM CREAM TP SCH (09:02)
[2018-01-02] MEDS ORDERED: TIOTROPIUM INHALER 18 MCG/DOSE 5 DOSE/MDI IH SCH (10:00)
--- NOTE | 2018-01-02 10:12 | GDS ---
ADMISSION DIAGNOSES: 1. Shortness of breath. 2. Abnormal MPI stress test. 3. Sick sinus syndrome with remote permanent pacemaker implantation. 4. Cardiomyopathy. 5. Hypertension. 6. Hyperlipidemia. 7. Diabetes type 2. 8. Chronic kidney disease stage 3. DISCHARGE DIAGNOSES: 1. Non flow-limiting coronary artery disease. 2. Sick sinus syndrome with remote permanent pacemaker implantation. 3. Nonischemic cardiomyopathy. 4. Hypertension. 5. Hyperlipidemia. 6. Diabetes type 2. 7. Chronic kidney disease stage 3. PROCEDURES PERFORMED DURING HOSPITALIZATION: 1. Electrocardiogram. 2. Diagnostic right and left heart catheterization. BRIEF HISTORY: Please see H and P. Briefly, the patient is an 82-year-old male who has been noticin g more ongoing shortness of breath. He recently underwent MPI study, which did show mid inferior api ann-marie hypokinesis with a small moderate intensity fixed inferior apical deficit. It was also noted off the testing that his EF was 32%. Due to this, his primary integrated circuit fabricator did set him up for a diagnos tic right and left heart catheterization with Dr. Lieberman, which was . HOSPITAL COURSE: Patient admitted through the CVC, prepped for procedure, and taken to , i n which he received 3 hours of hydration prior to cardiac catheterization due to his renal insufficie ncy, and then he was taken to the cardiac catheterization lab. There, via right femoral artery and v ein approach, Dr. Lieberman performed initially a right heart catheterization. Findings were wedge pres sure of 12 mm with mild V-waves at 15, PA pressures of 13/19, with a mean of 24, RV 35/4 with EDP of 11. RA was 3. Cardiac output was estimated at 4.93, index of 2.62. Selective coronary angiogram was done, which was noted left main was disease free. LAD gives rise to a diagonal with a 50% mid lesion. Rest of the LAD remained disease free. Circumflex had no flow-li miting disease. Right coronary artery was dominant, with a minimum luminal stenosis of 30-40 percent , but no other significant flow-limiting disease. In comparison to previous cardiac catheterization in 2012, Dr. Lieberman felt no significant changes. Patient was taken to CVC postprocedure, where sheat hs were removed. Due to lateness of the day, the patient was admitted to the PCU for overnight obser vation. The patient reports no chest pain or pressure. Reports no significant shortness of breath. He has been up and walking without difficulties. Continuous cardiac monitoring showing AV-paced rhy thm, with a noted episode of small run of SVT. The patient has been noted off the pacemaker check in the past to have small episodes of atrial tachycardia. The patient reports no chest pain or pressur e. Reports no significant shortness of breath. PHYSICAL EXAMINATION: Done today. GENERAL APPEARANCE: Medium-built, well-groomed male. V ITAL SIGNS: His current vital signs are blood pressure of 113/63, heart rate of 78, respirations 20, saturating 92% on room air, temperature of 36.9 degrees Celsius. HEENT: Head is normocephalic. L ips and tongue are pink and moist with no signs of cyanosis. Conjunctivae pink. NECK: Trachea is m idline, +2 carotid pulses bilateral. No auscultated bruits. No jugular vein distention. ABDOMEN: Soft, nontender, bowel sounds x4 quadrants, no organomegaly, no palpable masses. SKIN: [place], warm, dry, no cyanosis, no clubbing, no peripheral edema. VASCULAR: +2 carotids bilateral, +2 radials leah ateral, +1 dorsal pedal and posterior tibial pulses bilateral. Right groin site, catheter insertion site, with no redness, swelling, drainage, ecchymosis, or hematoma. No auscultated bruit noted over the site. LABORATORY STUDIES: Laboratory studies drawn today show a WBC of 5.32, hemoglobin of 10.8, hematocri t of 32.5, platelet count of 245. Sodium 140, potassium 4.9, chloride 105, CO2 30, BUN 31, creatinin e 1.9, glucose 71, calcium 8.5. Note, BUN and creatinine are within his standard limits. Fasting li pid panel done yesterday did show triglycerides of 224, total cholesterol 165, LDL of 85, HDL of 35. STUDIES: Right and left heart catheterization as mentioned above. Preoperative electrocardiogram fri AV-paced rhythm. DISPOSITION: Patient will be discharged home in stable condition. He is under activity restrictions of not lifting more than 10 pounds for the next week and no strenuous activity for the next 2 weeks. DISCHARGE MEDICATIONS: Please see discharge medication reconciliation sheet. Note, for his nonische faustino cardiomyopathy, the patient is on metoprolol and lisinopril. Continue on current dose of Lasix. He will follow up with his primary integrated circuit fabricator for further medication recommendations. DISCHARGE INSTRUCTIONS: Post-cardiac catheterization discharge instructions went over with the patie nt, including activity restrictions, bleeding precautions, monitoring for signs of infections and med ication compliancy. At the time of discharge, the patient verbalizes understanding of all instructio ns and has no questions or concerns. He has a followup appointment set with Dr. Beasley on January 13. At the time of discharge, the patient has been told if any problems or concerns come up post discha rge, he is to notify our office or return to the clinic. Total time spent on discharge: Greater than 30 minutes. /[id number]/MODL
--- NOTE | 2018-01-02 11:00 | ASDISCHSUM ---
Discharge Information Plan Status:Home with No Needs Medically Cleared to Leave:01/02/2018 Discharge Date:01/02/2018 10:59 AM CM D/C Disposition:Home, Routine, Self-Care ADT D/C Disposition:Home, Routine, Self-Care Projected Discharge Date:01/02/2018 10:59 AM Transportation at D/C: Discharge Delay Reason: Follow-Up Date:01/02/2018 10:59 AM Discharge Slot: Final Diagnosis: Placement Information Patient Contact Information Contact Name:KENDALL Relationship: Address:[address] City:[place] Alternate Phone: [facility]/Zip Code:[place] [address] Email: Financial Information Financial Class:Medicare Advantage Plans Primary Plan Desc:PILARP MEDICARE COMPLETE Primary Plan Number:[id number] Secondary Plan Desc: Secondary Plan Number: Assessment Information LACE LACE Length of stay for Answers: Less than 1 day current admission Acuity / Level of Answers: No Care: Did the patient have an inpatient admission? Comorbidities - select Answers: Any tumor (including all that apply lymphoma or leukemia) Chronic pulmonary disease Congestive heart failure Coronary Artery Disease Diabetes (uncontrolled or controlled) # of Emergency department Answers: 0 visits in the last 6 months Score: 9 Date Signed: 01/02/2018 10:59 AM Electronically Signed By:Joceline Dunaway RN Intervention Information
[2018-01-02] MEDS ORDERED: ALBUTEROL 3 ML DEYVIAL IH SCH (12:00)
[2018-01-03] MEDS ORDERED: FUROSEMIDE 20 MG TAB PO SCH (09:00)
== END 2018-01-02 10:59 | disposition home or self-care (01) ==
LOC: FCATH 08:06 → F2W 17:58
PROVIDERS: ADMIT Internal Medicine Cardiovascular Disease; ATTEND Internal Medicine Cardiovascular Disease
DX: I25.10 Atherosclerotic heart disease of native coronary artery without angina pectoris (principal); I49.5 Sick sinus syndrome; Z95.0 Presence of cardiac pacemaker; I42.9 Cardiomyopathy, unspecified; I12.9 Hypertensive chronic kidney disease with stage 1 through stage 4 chronic kidney disease, or unspecified chronic kidney disease; N18.3 Chronic kidney disease, stage 3 (moderate); E78.5 Hyperlipidemia, unspecified; E11.22 Type 2 diabetes mellitus with diabetic chronic kidney disease; F17.220 Nicotine dependence, chewing tobacco, uncomplicated
CPT/HCPCS: 93005; 93456; G0378; J1644; J1815; J2250; J3010; Q9967

== ENCOUNTER 2018-01-31 12:06 | Inpatient (IN) | payer OTHER ==
--- NOTE | 2018-01-31 12:46 | EDPHY ---
H & P Time Seen by Provider: 01/31/18 12:39 HPI/ROS: Chief complaint. Shortness of breath HPI. Patient is an 82-year-old male here with shortness of breath. He has been sick for 2 weeks. He feels his symptoms began after receiving a flu shot. The cough is dry and nonproductive. He has had quite a bit of congestion. He has had significant shortness of breath and tells me he can't walk secondary shortness of breath and his daughter in her had helped him get out of bed this morning because of shortness of breath. His wanted to call 911 last night. He has had chills and shaking but unknown fever. Some central chest discomfort which he describes as"pain". Occasional vomiting. No abdominal pain however. No unusual leg pain or swelling. Patient was admitted February 2017 for similar symptoms of COPD exacerbation ROS 10 systems were reviewed and negative with the exception of the elements mentioned in the history of present illness Past Medical/Surgical History: Past medical history chronic renal insufficiency, coronary artery disease with catheterization December 2017, COPD, hypertension diabetes, pacemaker, cardiomyopathy, dyslipidemia Social History: , nonsmoker, no alcohol Smoking Status: Former smoker Physical Exam: General Appearance: Alert well-developed male moderate distress vital signs show temperature to be 37 pulse oximeter 88% on room air Eyes: Pupils equal and round no pallor or injection. ENT, Mouth: Mucous membranes are moist. Respiratory: No retractions but inspiratory expiratory wheezing and rhonchi Cardiovascular: Regular rate and rhythm. Gastrointestinal: Abdomen is soft and nontender, no masses, bowel sounds normal. Neurological: Awake and alert, sensory and motor exams grossly normal. Skin: Warm and dry, no rashes. Musculoskeletal: Neck is supple nontender. Extremities symmetrical, full range of motion. Psychiatric: Patient is oriented X 3, there is no agitation. Constitutional: Initial Vital Signs Temperature (C) 37 C 01/31/18 12:10 Heart Rate 73 01/31/18 12:10 Respiratory Rate 22 H 01/31/18 12:10 Blood Pressure 120/76 01/31/18 12:10 O2 Sat (%) 88 L 01/31/18 12:10 O2 Delivery Mode Nasal Cannula O2 (L/minute) 1 Allergies/Adverse Reactions: No Known Allergies Allergy (Verified 01/31/18 12:14) Home Medications: Medication Instructions Recorded Albuterol [Proventil Inhaler HFA 12/19/15 (*)] Aspirin [Aspirin 81mg (*)] 04/01/15 Ferrous Sulfate [Ferrous Sulf 325 04/01/15 MG (*)] Gabapentin [Neurontin 100 MG (*)] 04/01/15 Metoprolol Tartrate [Lopressor 25 04/01/15 mg (*)] Multivitamins [Multivitamin (*)] 04/01/15 Atorvastatin Calcium [Lipitor 20 03/03/17 mg (*)] C/E/Zn/Cu/OM3/DHA/EPA/LUT/ZEAX 03/03/17 [Preservision Areds 2 Softgel] Calcium Carb W/Vit D [Calcium Carb 03/03/17 W/Vit D 500/200 (*)] glipiZIDE [Glucotrol 5 mg] 03/03/17 Insulin Glargine [Lantus 100 03/18/17 UNITS/ML (*)] Tiotropium Inhaler [Spiriva 03/18/17 Inhaler (RX)] Fluocinonide 0.05% [Lidex 0.05% 12/31/17 Cream] Fluticasone Nasal [Flonase Nasal 12/31/17 [place]] Furosemide [Lasix 20 MG (*)] 12/31/17 Lisinopril [Zestril 2.5 mg (*)] 12/31/17 traMADol [Ultram 50 mg (*)] 12/31/17 Medical Decision Making - Diagnostics EKG Interpretation: EKG shows paced rhythm. There is left axis deviation. Interventricular conduction delay is present. No significant ST elevation or depression. Ventricular response is 71 No significant change from previous EKG December 2017 Imaging Results: Chest x-ray interpreted by me suggestive of left lower lobe infiltrate Procedures: IV normal saline. Rakan taylor Difficulty obtaining IV access so he is given prednisone orally. Blood cultures are obtained IV Rocephin ED Course/Re-evaluation: Initial blood sugar was low at 54. Patient is given juice and some food. We will recheck his glucose Plan of care CBC shows 12.5 white blood cell count hematocrit is 34.3 Lactate is normal at 1.1, troponin is 0 I have discussed imaging lab EKG findings with patient and family. I have recommended admission and they are agreeable to this I discussed case with Dr. Mari for the hospitalist service and she agrees to the admission Differential Diagnosis: Patient has hypoxia. It appears he have COPD exacerbation. I considered pneumonia. I have considered sepsis. - Data Points Laboratory Results: 01/31/18 01/31/18 01/31/18 13:22 13:10 13:10 POC Sodium 142 mEq/L mEq/L (135-145) POC Potassium 5.1 mEq/L H mEq/L (3.3-5.0) POC Chloride 106.0 mEq/L mEq/L (97-110) POC Total CO2 28 mEq/L mEq/L (22-31) POC BUN 25 mg/dL H mg/dL (7-23) POC Creatinine 2.2 mg/dL H mg/dL (0.7-1.3) POC Glucose 54 mg/dL L mg/dL (70-100) POC Lactic Acid Heriberto 1.1 mmol/L mmol/L (0.7-2.1) POC Calcium 9.5 mg/dL mg/dL (8.5-10.4) POC Total Bilirubin 0.4 mg/dL mg/dL (0.1-1.4) POC AST 32 IU/L IU/L (17-59) POC ALT 19 IU/L L IU/L (21-72) POC Alk Phosphatase 94 IU/L IU/L (38-126) POC Troponin I 0.00 ng/mL ng/mL (0.00-0.08) POC Total Protein 7.3 g/dL g/dL (6.3-8.2) POC Albumin 3.2 g/dL L g/dL (3.5-5.0) Medications Given: Discontinued Medications Albuterol/Ipratropium (Duoneb) 3 ml IH EDNOW ONE Stop: 01/31/18 12:59 Last Admin: 01/31/18 13:25 Dose: 3 ml Prednisone (Prednisone) 60 mg PO EDNOW ONE Stop: 01/31/18 12:59 Last Admin: 01/31/18 13:10 Dose: 60 mg Point of Care Test Results: CBC CBC Collection Date 01/31/18 CBC Collection Time 13:18 WBC 12.5 RBC 3.54 HGB 11.7 HCT 34.3 PLT 325 Neut # 9.7 Neut 77.4 LYMPH # 2.1 LYMPH 16.7 Other WBC # 0.7 Other WBC 5.9 MCV 96.9 Chemistry 01/31/18 01/31/18 13:10 13:10 POC Sodium 142 mEq/L mEq/L (135-145) POC Potassium 5.1 mEq/L H mEq/L (3.3-5.0) POC Chloride 106.0 mEq/L mEq/L (97-110) POC Total CO2 28 mEq/L mEq/L (22-31) POC BUN 25 mg/dL H mg/dL (7-23) POC Creatinine 2.2 mg/dL H mg/dL (0.7-1.3) POC Glucose 54 mg/dL L mg/dL (70-100) POC Calcium 9.5 mg/dL mg/dL (8.5-10.4) POC Total Bilirubin 0.4 mg/dL mg/dL (0.1-1.4) POC AST 32 IU/L IU/L (17-59) POC ALT 19 IU/L L IU/L (21-72) POC Alk Phosphatase 94 IU/L IU/L (38-126) POC Troponin I 0.00 ng/mL ng/mL (0.00-0.08) POC Total Protein 7.3 g/dL g/dL (6.3-8.2) POC Albumin 3.2 g/dL L g/dL (3.5-5.0) Blood Gas/Lactic Acid-Venous 01/31/18 13:22 POC Lactic Acid Heriberto 1.1 mmol/L mmol/L (0.7-2.1) Comprehensive Metabolic Panel CMP Collection Date 01/31/18 CMP Collection Time 13:02 Sodium 142 Potassium 5.1 Chloride 106 TCO2 28 Glucose 54 BUN 25 Creatinine 2.2 Calcium 9.5 Total Protein 7.3 Albumin 3.2 Alkaline Phosphatase 94 ALT 19 AST 32 Total Bilirubin 0.4 Basic Metabolic Panel Chloride 106 Creatinine 2.2 Departure - Departure Disposition: [facility] Acute Clinical Impression: Chronic obstructive pulmonary disease with acute exacerbation Condition: Fair Referrals: Samara Barfield MD [Primary Care Provider] - As per Instructions
[2018-01-31] MEDS ORDERED: predniSONE 20 MG TAB PO ONE (12:58)
[2018-01-31] MEDS ORDERED: IPRATROPIUM/ALBUTEROL 3 ML DEYVIAL IH ONE (12:58)
--- NOTE | 2018-01-31 13:28 | CPEKG ---
Test Reason : OPEN Blood Pressure : / mmHG Vent. Rate : 071 BPM Atrial Rate : 074 BPM P-R Int : 066 ms QRS Dur : 176 ms QT Int : 470 ms P-R-T Axes : 000 -67 118 degrees QTc Int : 511 ms Atrial-ventricular dual-paced complexes Confirmed by James Maurer ([id number]) on 01/31/2018 1:28:09 PM Referred By: Confirmed By:James Maurer
[2018-01-31] MEDS ORDERED: NS 500 ML IV ONE (14:48)
[2018-01-31] MEDS ORDERED: oxyCODONE IR 5 MG TAB PO PRN (17:31)
[2018-01-31] MEDS ORDERED: ONDANSETRON 4 MG/2 ML VIAL IVP PRN (17:31)
[2018-01-31] MEDS ORDERED: ONDANSETRON DISINTEGRATING 4 MG TAB PO PRN (17:31)
[2018-01-31] MEDS ORDERED: PROMETHAZINE HCL 25 MG/ML INJ IVP PRN (17:31)
[2018-01-31] MEDS ORDERED: ACETAMINOPHEN 325 MG TAB PO PRN (17:31)
[2018-01-31] MEDS ORDERED: D50W 25 GM/50 ML SYR IVP PRN (17:31)
[2018-01-31] MEDS ORDERED: HYDROCODONE/APAP 5/325 TAB PO PRN (17:31)
[2018-01-31] MEDS ORDERED: ALBUTEROL 3 ML DEYVIAL IH PRN (17:31)
--- NOTE | 2018-01-31 17:39 | PDGENHP ---
History and Physical - Chief Complaint shortness of breath - History of Present Illness 82 yo M with PMH that includes COPD, CAD and CHF presenting with c/o feeling poorly x 2 weeks with chills, malaise and sob that got particularly worse over the last 48 hours. Patient notes that he has had increased cough and sputum production as well. He denies any chest pain, denies any swelling or pain in the legs. He did get a flu shot and notes that his sxs began shortly after getting the flu shot. He has had similar sxs in the past when he has had pneumonia. He does not think his weight has changed recently and has not had any changes in his medications recently. History Information - Allergies/Home Medication List Allergies/Adverse Reactions: No Known Allergies Allergy (Verified 01/31/18 12:14) Home Medications: Albuterol [Proventil Inhaler HFA (*)] 04/01/15 [Last Taken 03/18/17 08:00] Aspirin [Aspirin 81mg (*)] 04/01/15 [Last Taken 01/01/18 08:00] Ferrous Sulfate [Ferrous Sulf 325 MG (*)] 04/01/15 [Last Taken 12/31/17 08:00] Gabapentin [Neurontin 100 MG (*)] 04/01/15 [Last Taken 01/01/18 08:00] Metoprolol Tartrate [Lopressor 25 mg (*)] 04/01/15 [Last Taken 01/01/18 08:00] Multivitamins [Multivitamin (*)] 04/01/15 [Last Taken 12/31/17 08:00] Atorvastatin Calcium [Lipitor 20 mg (*)] 03/03/17 [Last Taken 12/31/17 18:00] C/E/Zn/Cu/OM3/DHA/EPA/LUT/ZEAX [Preservision Areds 2 Softgel] 03/03/17 [Last Taken 12/31/17 08:00] Calcium Carb W/Vit D [Calcium Carb W/Vit D 500/200 (*)] 03/03/17 [Last Taken 08:00] glipiZIDE [Glucotrol 5 mg] 03/03/17 [Last Taken 12/31/17 18:00] Insulin Glargine [Lantus 100 UNITS/ML (*)] 03/18/17 [Last Taken 12/31/17 19:00] Tiotropium Inhaler [Spiriva Inhaler (RX)] 03/18/17 [Last Taken 03/18/17 10:00] Fluocinonide 0.05% [Lidex 0.05% Cream] 12/31/17 [Last Taken Unknown] Fluticasone Nasal [Flonase Nasal [place]] 12/31/17 [Last Taken Unknown] Furosemide [Lasix 20 MG (*)] 12/31/17 [Last Taken 12/31/17 08:00] Lisinopril [Zestril 2.5 mg (*)] 12/31/17 [Last Taken 01/01/18 08:00] traMADol [Ultram 50 mg (*)] 12/31/17 [Last Taken 12/31/17 18:00] I have personally reviewed and updated: family history, medical history, social history, surgical history - Past Medical History coronary artery disease, CHF, diabetes type 2, GERD, hypertension, hyperlipidemia Additional medical history: Stage 3 CKD baseline Cr 1.8-2. H/O prostate cancer - treated with Lupron and radiation 2012. SSS with pacemaker. CAD - angiogram 2008, normal. Dilated CM - EF 45% in 2012 --as low as 20%. Chronic systolic/ diastolic heart failure. Anemia of CKD - Surgical History Reports: pacemaker/AICD, spinal surgery Additional surgical history: Cervical spine surgery. Right MAME. Pacemaker insertion. Shoulder surgery - Family History Positive for: diabetes type II - Social History Smoking Status: Former smoker (30-60 pack years) Alcohol Use: Rarely Drug Use: None Additional social history: Lives independently. 6 children. Review of Systems Review of Systems: ROS: 10pt was reviewed & negative except for what was stated in HPI & below Physical Exam Physical Exam: Temp Pulse Resp BP Pulse Ox 36.9 C 75 22 H 109/65 90 L 01/31/18 16:55 01/31/18 16:55 01/31/18 16:55 01/31/18 16:55 01/31/18 16:55 O2 (L/minute) 1 Constitutional: not in pain, chronically ill appearing Eyes: PERRL, anicteric sclera Ears, Nose, Mouth, Throat: moist mucous membranes, hearing normal Cardiovascular: regular rate and rhythym, no murmur, rub, or gallop, No edema Respiratory: no respiratory distress, reduced air movement, expiratory wheeze Gastrointestinal: normoactive bowel sounds, soft, non-tender abdomen Genitourinary: no bladder tenderness Skin: warm, normal color Musculoskeletal: no muscle tenderness, No asymmetric calves Neurologic: AAOx3 Psychiatric: interacting appropriately, not anxious, not encephalopathic Lab Data & Imaging Review POC Sodium 142 mEq/L (135-145) 01/31/18 13:10 POC Potassium 5.1 mEq/L (3.3-5.0) H 01/31/18 13:10 POC Chloride 106.0 mEq/L (97-110) 01/31/18 13:10 POC Total CO2 28 mEq/L (22-31) 01/31/18 13:10 POC BUN 25 mg/dL (7-23) H 01/31/18 13:10 POC Creatinine 2.2 mg/dL (0.7-1.3) H 01/31/18 13:10 POC Glucose 75 mg/dL (70-100) 01/31/18 14:31 POC Lactic Acid Heriberto 1.1 mmol/L (0.7-2.1) 01/31/18 13:22 POC Calcium 9.5 mg/dL (8.5-10.4) 01/31/18 13:10 POC Total Bilirubin 0.4 mg/dL (0.1-1.4) 01/31/18 13:10 POC AST 32 IU/L (17-59) 01/31/18 13:10 POC ALT 19 IU/L (21-72) L 01/31/18 13:10 POC Alk Phosphatase 94 IU/L (38-126) 01/31/18 13:10 POC Troponin I 0.00 ng/mL (0.00-0.08) 01/31/18 13:10 POC Total Protein 7.3 g/dL (6.3-8.2) 01/31/18 13:10 POC Albumin 3.2 g/dL (3.5-5.0) L 01/31/18 13:10 Visualized and Interpreted Chest x-ray results: Yes Chest X-Ray results: infiltrate (LLL--chronic or recurrent) Visualized and Interpreted EKG results: Yes EKG additional interpertation: A-V dual paced complexes Assessment & Plan Assessment: Chronic obstructive pulmonary disease with acute exacerbation (Acute) 82 yo M with hx of COPD, CAD, systolic CHF presenting with acute hypoxic respiratory failure in the setting of copd exacerbation and pna. # copd with acute exacerbation: patient with diffuse wheeze and poor air mvmt on exam, will continue scheduled duonebs, prn albuterol, prednisone and abx as next # acute hypoxic respiratory failure: at baseline patient does not require supplemental o2 but presenting with o2 in the mid 80s on RA, 2/2 above as well as pna as next. # pna: with LLL infiltrate and sxs c/w pna, was given ctx and will continue ctx/ azithro for now, will check wbc but patient does not have VS concerning for sepsis, blood cultures drawn and pending # chronic systolic heart failure: with ischemic CM and EF as low as 20% in the past, most recently in the low 30s with cath performed last month to eval further, patient does not appear volume overloaded, cxr personally reviewed with CM but no signs of failure. Continue OP medications when they can be verified # CAD: with cath one month ago showing no obstructive lesions, no chest pain or clear ischemia on ecg, continue op meds # CKD: with most recently baseline creatinine in the mid 2's, stable # pulmonary htn: without e/o decompensation currently, no lower extremity edema # DM2: will provide SSI for now, home meds pending # anemia: cbc pending, has been mild and stable # SSS: with PPM in place # IP status, will need > 48 hours stay for eval/mgmt of above given severity of presenting issues # Patient new to my care. Old records reviewed and summarized as above. Care plan reviewed with ER doctor. Further hx obtained from and daughter present at bedside.
[2018-01-31] MEDS: INSULIN LISPRO 100 UNIT/ML SC SCH (18:17)
[2018-01-31 18:47] LABS: PLATELET COUNT 287 10^3/uL (150-400)
[2018-01-31] MEDS ORDERED: FLUTICASONE NASAL 120 SPRAYS/16 GM MDI EACHNARE PRN (19:26)
[2018-01-31] MEDS ORDERED: traMADol 50 MG TAB PO PRN (19:26)
[2018-01-31] MEDS: AZITHROMYCIN IV 500 MG in NS 250 ML IV SCH (20:09)
[2018-01-31] MEDS: IPRATROPIUM/ALBUTEROL 3 ML DEYVIAL IH SCH (20:36)
[2018-01-31] MEDS: ACETYLCYSTEINE 10% IH/PO 4 ML VIAL IH SCH (20:40)
[2018-01-31] MEDS: HEPARIN 5,000 UNIT/0.5 ML INJ SC SCH (21:49)
[2018-01-31] MEDS: INSULIN GLARGINE 100 UNITS/ML UNIT SC SCH (21:50)
[2018-02-01 05:09] LABS: PLATELET COUNT 270 10^3/uL (150-400)
[2018-02-01] MEDS: HEPARIN 5,000 UNIT/0.5 ML INJ SC SCH ×3 (05:45→21:32)
[2018-02-01] MEDS: IPRATROPIUM/ALBUTEROL 3 ML DEYVIAL IH SCH ×4 (06:16→20:49)
[2018-02-01] MEDS: ACETYLCYSTEINE 10% IH/PO 4 ML VIAL IH SCH ×3 (06:16→16:57)
[2018-02-01] MEDS: ATORVASTATIN CALCIUM 20 MG TAB PO SCH (08:05)
[2018-02-01] MEDS: ASPIRIN 81 MG CHEWABLE TAB PO SCH (08:05)
[2018-02-01] MEDS: PRESERVISION AREDS2 FORMULA EYE VIT 1 EACH PO SCH (08:05)
[2018-02-01] MEDS: CALCIUM CARB W/VIT D 500 MG TAB PO SCH (08:05)
[2018-02-01] MEDS: LISINOPRIL 5 MG TAB PO SCH (08:05)
[2018-02-01] MEDS: AZITHROMYCIN IV 500 MG in NS 250 ML IV SCH (08:05)
[2018-02-01] MEDS: GABAPENTIN 100 MG CAP PO SCH (08:06)
[2018-02-01] MEDS: INSULIN LISPRO 100 UNIT/ML SC SCH ×3 (08:06→17:32)
[2018-02-01] MEDS: FERROUS SULFATE 325 MG TAB PO SCH (08:06)
[2018-02-01] MEDS: MULTIVITAMINS 1 EACH TAB PO SCH (08:06)
[2018-02-01] MEDS: predniSONE 20 MG TAB PO SCH (08:07)
--- NOTE | 2018-02-01 08:46 | PDMN ---
Medical Necessity Medical necessity: MCG : M100 COPD : pt presents with chills, malaise, SOB X 2 weeks, notably worse in last 48 hours, increase cough, sputum production, diffuse wheezing , poor air movement on exam. RA sats mid 80's. CXR: LLL infiltrate, chronic or recurrent., PMH: COPD, CAD, chronic systolic heart failure with EF low 30's.,DM2, GERD, HTN, hyperlipidemia, CKD stage 3, anemia, , h/o prostate ca., sss with pacemaker, anticipate > 2 MN ongoing med nec care
[2018-02-01] MEDS ORDERED: METOPROLOL TARTRATE 25 MG TAB PO SCH (09:00)
[2018-02-01] MEDS ORDERED: FUROSEMIDE 20 MG TAB PO SCH (09:00)
[2018-02-01] MEDS ORDERED: DOCUSATE SODIUM 100 MG CAP PO PRN (12:31)
--- NOTE | 2018-02-01 15:15 | ASMTCMCOM ---
CM Note CM Note Notes: Case Management Chart Review for Discharge Support: Patient is an 82 y/o male, admitted via [facility] ED for shortness of breath. Past medical history includes chronic renal insufficiency coronary artery disease with cath-Dec 2017, COPD, hypertension, diabetes, pacemaker, cardiomyopathy, dyslipidemia. He was seen at [facility] in 2016 for similar symptoms of COPD exacerbation and was discharged with [facility]. Family has been present in room and is supportive to patient. CM met with patient, shared PT/OT recommended Home Health, CM will place referral for [facility]. Patient will likely be here through Sunday 02/04. CM to follow. Plan: [facility], d/c likely around 02/04 Date Signed: 02/01/2018 03:15 PM Electronically Signed By:Reba Lopez
[2018-02-01] MEDS ORDERED: SODIUM CL NASAL 45 ML BTL EACHNARE PRN (16:22)
--- NOTE | 2018-02-01 16:34 | HOSPPROG ---
Hospitalist Progress Note Assessment/Plan: #CAP: Azithro/CTX. Resp PCR pending #COPD exacerbation: pred, nebs #Compensated CHF: cont home meds #Mild leukocytosis: improved #CAD: ASA, statin, BB #HLD: statin #SSS: pacer #NI-CDM: recent cath showed stable disease. Cont home meds #DM: glargine, SSI #Disp: inpatient admission for IV abx, nebs. If improved, can change to PO tomorrow Subjective: SOB improved Objective: Vital Signs Temp Pulse Resp BP Pulse Ox 36.8 C 85 28 H 125/68 H 95 02/01/18 15:27 02/01/18 15:27 02/01/18 15:27 02/01/18 15:27 02/01/18 15:27 Laboratory Results 02/01/18 04:59 02/01/18 04:59 01/31/18 02/01/18 02/02/18 05:59 05:59 05:59 Intake Total 1110 Output Total 900 Balance 210 - Time Spent With Patient Time Spent with Patient: greater than 35 minutes Time Spent with Patient: Greater than 35 minutes spent on this patients care, greater than 50% of time spent counseling, educating, and coordinating care regarding the above mentioned plan. - Physical Exam Constitutional: no apparent distress Eyes: PERRL Ears, Nose, Mouth, Throat: moist mucous membranes Cardiovascular: regular rate and rhythym, edema (+1 edema) Respiratory: no respiratory distress, reduced air movement, No expiratory wheeze Gastrointestinal: normoactive bowel sounds Genitourinary: no bladder fullness Skin: warm Musculoskeletal: full muscle strength Neurologic: CN II-XII Intact Psychiatric: interacting appropriately ICD10 Worksheet Patient Problems: Problems Problem Status Onset Chronic obstructive pulmonary disease with acute exacerbation Acute Acute renal failure syndrome Active Anemia of chronic disorder Active Diabetes mellitus type 2 Active Gout Active CHF - Congestive heart failure Acute COPD (chronic obstructive pulmonary disease) Acute Chronic obstructive lung disease Acute Hypoxemia Acute Renal insufficiency syndrome Acute
[2018-02-01] MEDS: GUAIFENESIN/DM 10 ML UDCUP PO PRN ×2 (16:43→21:32)
--- NOTE | 2018-02-01 20:16 | ASMTLACE ---
CHARIE Acuity / Level of Answers: Yes Care: Did the patient have an inpatient admission? Comorbidities - select Answers: Chronic pulmonary disease all that apply Congestive heart failure Coronary Artery Disease Diabetes (uncontrolled or controlled) Moderate or severe liver or renal disease Other Notes: HTN; Pacemaker # of Emergency department Answers: 1-2 visits in the last 6 months Score: 16 Date Signed: 02/01/2018 08:15 PM Electronically Signed By:Nicolette Bush
[2018-02-01] MEDS: INSULIN GLARGINE 100 UNITS/ML UNIT SC SCH (21:32)
[2018-02-01] MEDS: METOPROLOL TARTRATE 25 MG TAB PO SCH (21:33)
[2018-02-02] MEDS: ACETYLCYSTEINE 10% IH/PO 4 ML VIAL IH SCH ×4 (03:49→16:46)
[2018-02-02] MEDS: HEPARIN 5,000 UNIT/0.5 ML INJ SC SCH ×3 (05:09→22:53)
[2018-02-02] MEDS: IPRATROPIUM/ALBUTEROL 3 ML DEYVIAL IH SCH ×4 (05:18→20:27)
--- NOTE | 2018-02-02 08:26 | HOSPPROG ---
Hospitalist Progress Note Assessment/Plan: Hospitalist Progress Note Assessment/Plan: #CAP: cont Azithro/CTX. Resp PCR neg #COPD exacerbation: cont po pred, nebs #AHRF 2/2 above issues: on 2 LPM, wean O2 as able, may need home O2 #Compensated CHF: cont home meds #CKD: Cr 2, at baseline #Mild leukocytosis: improved #CAD: ASA, statin, BB #HLD: statin #SSS: pacer #NI-CDM: recent cath showed stable disease. Cont home meds #DM: glargine, SSI #Disp: inpatient admission for IV abx, nebs. PT/OT recommending home care. Continues to have O2 needs, may need home O2 Subjective: Pt still coughing quite a bit. Denies CP or SOB. No fevers/ chills. Appetite good. He feels weak. Objective: Vital Signs Temp Pulse Resp BP Pulse Ox 36.2 C 94 18 116/72 94 02/02/18 08:00 02/02/18 08:00 02/02/18 08:00 02/02/18 08:00 02/02/18 08:00 Microbiology 02/01/18 12:46 Respiratory Panel (PCR) - Final Nasal, Sinus - Swab No Organism Detected Laboratory Results 02/01/18 04:59 02/01/18 04:59 02/01/18 02/02/18 02/03/18 05:59 05:59 05:59 Intake Total 1110 1155 Output Total 900 1325 Balance 210 -170 - Physical Exam Constitutional: no apparent distress Eyes: PERRL Ears, Nose, Mouth, Throat: moist mucous membranes Cardiovascular: regular rate and rhythym Respiratory: no respiratory distress, reduced air movement Gastrointestinal: normoactive bowel sounds, soft, non-tender abdomen Skin: warm Musculoskeletal: full muscle strength Neurologic: AAOx3 Psychiatric: interacting appropriately ICD10 Worksheet Patient Problems: Problems Problem Status Onset Chronic obstructive pulmonary disease with acute exacerbation Acute Acute renal failure syndrome Active Anemia of chronic disorder Active Diabetes mellitus type 2 Active Gout Active CHF - Congestive heart failure Acute COPD (chronic obstructive pulmonary disease) Acute Chronic obstructive lung disease Acute Hypoxemia Acute Renal insufficiency syndrome Acute
[2018-02-02] MEDS: LISINOPRIL 5 MG TAB PO SCH (08:37)
[2018-02-02] MEDS: ASPIRIN 81 MG CHEWABLE TAB PO SCH (08:37)
[2018-02-02] MEDS: GABAPENTIN 100 MG CAP PO SCH (08:37)
[2018-02-02] MEDS: FERROUS SULFATE 325 MG TAB PO SCH (08:37)
[2018-02-02] MEDS: CALCIUM CARB W/VIT D 500 MG TAB PO SCH (08:37)
[2018-02-02] MEDS: PRESERVISION AREDS2 FORMULA EYE VIT 1 EACH PO SCH (08:37)
[2018-02-02] MEDS: glipiZIDE 5 MG TAB PO SCH (08:37)
[2018-02-02] MEDS: ATORVASTATIN CALCIUM 20 MG TAB PO SCH (08:37)
[2018-02-02] MEDS: AZITHROMYCIN IV 500 MG in NS 250 ML IV SCH (08:38)
[2018-02-02] MEDS: METOPROLOL TARTRATE 25 MG TAB PO SCH ×2 (08:38→20:33)
[2018-02-02] MEDS: INSULIN LISPRO 100 UNIT/ML SC SCH ×4 (08:38→23:50)
[2018-02-02] MEDS: MULTIVITAMINS 1 EACH TAB PO SCH (08:38)
[2018-02-02] MEDS: predniSONE 20 MG TAB PO SCH (08:38)
[2018-02-02] MEDS: GUAIFENESIN/DM 10 ML UDCUP PO PRN (16:49)
[2018-02-02] MEDS: INSULIN GLARGINE 100 UNITS/ML UNIT SC SCH (20:32)
[2018-02-03] MEDS: ACETYLCYSTEINE 10% IH/PO 4 ML VIAL IH SCH ×3 (04:26→11:39)
[2018-02-03] MEDS: IPRATROPIUM/ALBUTEROL 3 ML DEYVIAL IH SCH ×2 (05:47→11:40)
[2018-02-03] MEDS: HEPARIN 5,000 UNIT/0.5 ML INJ SC SCH (06:07)
[2018-02-03] MEDS: FERROUS SULFATE 325 MG TAB PO SCH (08:09)
[2018-02-03] MEDS: ATORVASTATIN CALCIUM 20 MG TAB PO SCH (08:09)
[2018-02-03] MEDS: ASPIRIN 81 MG CHEWABLE TAB PO SCH (08:09)
[2018-02-03] MEDS: PRESERVISION AREDS2 FORMULA EYE VIT 1 EACH PO SCH (08:09)
[2018-02-03] MEDS: CALCIUM CARB W/VIT D 500 MG TAB PO SCH (08:09)
[2018-02-03 08:49] VITALS: BP 133/104
--- NOTE | 2018-02-03 08:50 | PDIAF ---
- Diagnosis Diagnosis: pneumonia, COPD Code Status: Full Code - Medication Management Discharge Medications: Medications to Continue on Transfer Albuterol [Proventil Inhaler HFA (*)] 1 puffs PO Q4H PRN 04/01/15 [Last Taken 08:00] Aspirin [Aspirin 81mg (*)] 81 mg PO DAILY 04/01/15 [Last Taken 01/31/18] Ferrous Sulfate [Ferrous Sulf 325 MG (*)] 325 mg PO DAILY 04/01/15 [Last Taken 01/31/18] Gabapentin [Neurontin 100 MG (*)] 100 mg PO HS 04/01/15 [Last Taken 01/31/18] Metoprolol Tartrate [Lopressor 25 mg (*)] 25 mg PO BID 04/01/15 [Last Taken ] Multivitamins [Multivitamin (*)] 1 tab PO DAILY 04/01/15 [Last Taken 01/31/18] Atorvastatin Calcium [Lipitor 20 mg (*)] 20 mg PO DAILY 03/03/17 [Last Taken ] C/E/Zn/Cu/OM3/DHA/EPA/LUT/ZEAX [Preservision Areds 2 Softgel] 1 cap PO DAILY [Last Taken 01/31/18] Calcium Carb W/Vit D [Calcium Carb W/Vit D 500/200 (*)] 500 mg PO DAILY [Last Taken 01/31/18] Insulin Glargine [Lantus 100 UNITS/ML (*)] 20 units SC HS 03/18/17 [Last Taken 01/31/18] Furosemide [Lasix 20 MG (*)] 20 mg PO Q2D 12/31/17 [Last Taken 01/31/18] Lisinopril [Zestril 2.5 mg (*)] 2.5 mg PO DAILY 12/31/17 [Last Taken 01/31/18] traMADol HCL [Tramadol HCl] 50 mg PO Q6H PRN 01/31/18 [Last Taken 01/31/18] Acetaminophen [Acetaminophen 8 Hour] 1,300 mg PO DAILY 02/01/18 [Last Taken Unknown] Docusate Sodium [Colace 100 MG (*)] 100 mg PO DAILY PRN 02/01/18 [Last Taken Unknown] glipiZIDE [Glipizide] 5 mg PO DAILY 02/01/18 [Last Taken Unknown] Cefpodoxime Proxetil [Vantin] 200 mg PO BID #8 tab 02/03/18 [Last Taken Unknown] Fluticasone Nasal [Flonase Nasal [place]] 1 sprays [place] DAILY PRN mdi [Last Taken Unknown] Sodium Cl Nasal [Sully [place] (*)] 1 spray [place] PRN PRN btl 02/03/18 [Last Taken Unknown] guaiFENesin/DEXTROMETHORPHAN [Robitussin Dm Oral Liquid (*)] 10 ml PO Q4HRS PRN #150 ml 02/03/18 [Last Taken Unknown] predniSONE 40 mg PO DAILY #4 tablet 02/03/18 [Last Taken Unknown] Discharge Medications: Refer to the Discharge Home Medication list for PRN reason. PICC Care - Routine: N/A - Orders Services needed: Home Care, Registered Nurse, Physical Therapy, Occupational Therapy Home Care Face to Face: I certify that this patient was under my care and that I had the required [id number] encounter meeting the encounter requirements on the discharge day. My findings support the fact that the patient is homebound as defined in Home Care Face to Face Continued: CMS Chapter 7 Medicare Benefits Manual 30.1.1 , The condition of the patient is such that there exists a normal inability to leave home and consequently, leaving home would require a considerable and taxing effort. Isolation Type: None Diet Recommendation: no restrictions on diet - Follow Up Care Current Providers and Referrals: Samara Barfield MD [Primary Care Provider] - As per Instructions
[2018-02-03] MEDS ORDERED: FUROSEMIDE 20 MG TAB PO SCH (09:00)
[2018-02-03] MEDS: GABAPENTIN 100 MG CAP PO SCH (09:43)
[2018-02-03] MEDS: METOPROLOL TARTRATE 25 MG TAB PO SCH (09:44)
[2018-02-03] MEDS: LISINOPRIL 5 MG TAB PO SCH (09:44)
[2018-02-03] MEDS: glipiZIDE 5 MG TAB PO SCH (09:45)
[2018-02-03] MEDS: MULTIVITAMINS 1 EACH TAB PO SCH (09:45)
[2018-02-03] MEDS: predniSONE 20 MG TAB PO SCH (09:45)
[2018-02-03] MEDS: INSULIN LISPRO 100 UNIT/ML SC SCH (09:46)
[2018-02-03] MEDS: AZITHROMYCIN IV 500 MG in NS 250 ML IV SCH (13:13)
--- NOTE | 2018-02-04 06:50 | GDS ---
DISCHARGE DIAGNOSES: 1. Acute exacerbation of chronic obstructive pulmonary disease. 2. Community-acquired pneumonia. 3. Acute hypoxemic respiratory failure, resolved. 4. History of heart failure, compensated. 5. Chronic kidney disease. Creatinine at baseline. 6. Coronary artery disease, stable. 7. Hyperlipidemia. 8. Sick sinus syndrome. 9. Nonischemic cardiomyopathy. 10. Diabetes mellitus type 2, on insulin. HISTORY OF DETAILS: Please see history and physical dated January 31, 2018. In brief, the patient i s an 82-year-old male with a history of COPD, coronary artery disease, and heart failure, who present s to the emergency department with shortness of breath. He was admitted to the hospital for further management. HOSPITAL COURSE: The patient was admitted to the med/surg unit. He was found to have diffuse wheezi ng and decreased air movement on arrival. He was treated with scheduled DuoNeb, p.r.n. albuterol, pr ednisone, and antibiotics. His chest x-ray was suggestive of a left lower lobe infiltrate and he was treated with ceftriaxone and azithromycin. He completed 1.5 g of azithromycin and was discharged wi th 4 more days of cefpodoxime to complete his treatment course. He was compensated from a heart fail ure standpoint and had no symptoms of coronary artery disease. His other chronic medical problems re mained stable. DISPOSITION: Patient is discharged home in stable condition with home health care, RN, PT, OT. FOLLOWUP: Dr. Samara Barfield, primary care. DISCHARGE MEDICATIONS: Please see [employer] completed outpatient medication list. New medications on discharge include: Cefpodoxime 200 mg p.o. b.i.d., #8, no refills; prednisone 40 mg p.o. daily, #4, no refills; nasal saline spray, Flonase 1 spray each naris daily p.r.n. He will continue all other outpatient medications as previously prescribed. /[id number]/MODL
== END 2018-02-03 12:35 | disposition home health service (06) | DRG 193 ==
LOC: CED 12:06 → CEDHOLD 14:12 → F3E 17:45
PROVIDERS: ADMIT Internal Medicine; ATTEND Internal Medicine
DX: J18.8 Other pneumonia, unspecified organism (principal); J96.01 Acute respiratory failure with hypoxia; J44.1 Chronic obstructive pulmonary disease with (acute) exacerbation; I42.9 Cardiomyopathy, unspecified; I13.0 Hypertensive heart and chronic kidney disease with heart failure and stage 1 through stage 4 chronic kidney disease, or unspecified chronic kidney disease; I50.42 Chronic combined systolic (congestive) and diastolic (congestive) heart failure; N18.3 Chronic kidney disease, stage 3 (moderate); I25.10 Atherosclerotic heart disease of native coronary artery without angina pectoris; E78.5 Hyperlipidemia, unspecified; E11.9 Type 2 diabetes mellitus without complications; D63.1 Anemia in chronic kidney disease; Z79.4 Long term (current) use of insulin; Z85.46 Personal history of malignant neoplasm of prostate; Z95.810 Presence of automatic (implantable) cardiac defibrillator; Z87.891 Personal history of nicotine dependence
CPT/HCPCS: 71046-PO; 80053-PO; 83605-PO; 84484-PO; 96365; 97116-GP; 97161-GP; 97166-GO; 97535-GO; G8978-GP-CJ; G8979-GP-CI; G8987-GO-CJ; G8988-GO-CI; J0456; J0696; J1644; J1815; J7512

== ENCOUNTER → 2018-08-27 | Day surgery (SDC) | payer OTHER ==
[~2018-08-27] MED LIST changes: +BACITRACIN IRRIGATION/NS 50,000 UNITS/1,000 ML BTL IRR ONE; +BUPIVACAINE 0.5% 30 ML SDV ONE; +D50W 25 GM/50 ML VIAL ONE; +DIAZEPAM 5 MG TAB PO ONE; +LIDOCAINE 1% 300 MG/30 ML SDV ONE; +MIDAZOLAM 2 MG/2 ML VIAL ONE; +NS 1,000 ML IV ONE; +ceFAZolin 2 GM/DEXTROSE 100 ML IV ONE; +diphenhydrAMINE 25 MG CAP PO ONE; +fentaNYL 100 MCG/2 ML INJ ONE
--- NOTE | 2018-08-27 09:36 | PDPROPOC ---
Sedation Plan of Care Sedation Plan of Care: vital signs stable, mental status noted, patient educated of risks, benefits, alternatives, patient can tolerate sedation ASA Classification: ASA 2 Planned drugs: fentanyl, midazolam Mallampati Score: Class 2 Mallampati Reference Image: Patient passed 3-3-2 rule?: Yes
[2018-08-27 10:06] LABS: PLATELET COUNT 260 10^3/uL (150-400)
[2018-08-27 10:16] LABS: INR 1.01 (0.83-1.16); PROTIME(PATIENT) 12.9 SEC (12.0-15.0)
--- NOTE | 2018-08-27 13:03 | EPPROC ---
Electrophysiology Procedure Note: PROCEDURE: MRI compatible Pulse Generator Change DATE OF PROCEDURE: 08/27/2018 EXPLANTED DEVICE: Biotronik Stratos LV, Serial# [id number] IMPLANTED DEVICE: Edora 8 DR-T, Model# [id number], Serial#[id number] LEADS: A lead: Medtronic BIOSMART Legacy Placeholder, Model# 4076-45, Serial# [id number] V lead: [employer]tronic BIOSMART Legacy Placeholder, Model# 4076-52, Serial# [id number] COMPLICATIONS: None SALES REPRESENTATIVE: Mark Lieberman MD INDICATION AND APPROPRIATE USE CRITERIA: The device is being replaced for FIONA alerts. The device was originally replaced on06/17/2011 for cardiomyopathy. PROCEDURE IN DETAIL: After informed consent was obtained and n.p.o. status was confirmed, the region of the left subclavicular fossa was cleaned, prepped and draped in a sterile fashion. Approximately 20 mL of 1% lidocaine was utilized for local anesthesia. The skin was sharply incised with a #10 blade. Electrocautery and local pressure were used for hemostasis. Sharp and blunt dissection was used to access the pacemaker pocket overlying the pectoralis major fascia. The pocket was thoroughly flushed and checked for bleeding. Hemostasis was established and the old device was removed from the pocket. The atrial lead set screw was loosened. The atrial lead serial number was checked and placed in the upper pole lead housing of the new pulse generator and set screw firmly applied. There was no intrinsic conduction through the AV node. The procedure was repeated for the RV lead with the assistance of the natural gas technician. Ventricular lead threshold was tested and found to be 1.1 V at 0.4 ms width. R-wave amplitude was tested at 4mV. Lead impedance was 370 Ohms. Atrial lead threshold was tested at 0.6 V at 0.4 ms width. P-wave amplitude was 2.2 mV, lead impedance was 330 Ohms. The device was placed in the pocket and sutured in place with #0 Ethibond. The skin was closed with a 3-layered 3-0 Vicryl, 2-0 Vicryl and interrupted staple repair with excellent wound edge opposition and hemostasis documented. The patient returned to the post cath recovery unit in good and stable condition where a stat postoperative EKG will be obtained. FINAL IMPRESSION: Successful elective pulse generator replacement without immediate complication. Stable lead threshold and impedance post procedure. Patient Problems: Problems Problem Status Onset Acute renal failure syndrome Active Anemia of chronic disorder Active Diabetes mellitus type 2 Active Gout Active CHF - Congestive heart failure Acute COPD (chronic obstructive pulmonary disease) Acute Chronic obstructive lung disease Acute Chronic obstructive pulmonary disease with acute exacerbation Acute Hypoxemia Acute Renal insufficiency syndrome Acute
--- NOTE | 2018-08-31 13:56 | CPEKG ---
Test Reason : OPEN Blood Pressure : / mmHG Vent. Rate : 063 BPM Atrial Rate : 000 BPM P-R Int : 104 ms QRS Dur : 186 ms QT Int : 483 ms P-R-T Axes : 256 -65 117 degrees QTc Int : 495 ms Ventricular-paced rhythm Confirmed by Jose Pruitt ([id number]) on 08/31/2018 1:55:32 PM Referred By: Mark Lieberman Confirmed By:Jose Pruitt
== END | disposition home or self-care (01) ==
LOC: FCATH 09:14
PROVIDERS: ATTEND Internal Medicine Cardiovascular Disease
DX: Z45.010 Encounter for checking and testing of cardiac pacemaker pulse generator [battery] (principal); I49.5 Sick sinus syndrome; I25.10 Atherosclerotic heart disease of native coronary artery without angina pectoris; I42.9 Cardiomyopathy, unspecified; N18.3 Chronic kidney disease, stage 3 (moderate); J44.9 Chronic obstructive pulmonary disease, unspecified; E11.22 Type 2 diabetes mellitus with diabetic chronic kidney disease; I12.9 Hypertensive chronic kidney disease with stage 1 through stage 4 chronic kidney disease, or unspecified chronic kidney disease; E78.5 Hyperlipidemia, unspecified; Z96.641 Presence of right artificial hip joint
CPT/HCPCS: C1785; J0690; J2250; J3010